=== PATIENT | male | born 1975 | race Caucasian/White ===

== ENCOUNTER 2023-04-24 13:47 | Inpatient (IN) | payer OTHER, SELFPAY ==
[2023-04-24] VITALS (13 sets, daily range): BP systolic 141–160; BP diastolic 99–116; BMI 25.4; BMI 24.7
--- NOTE | 2023-04-24 10:33 | ED.GENMED ---
History of Present Illness
General
Chief Complaint: Seizure
Source: patient
Time Seen by Provider: 04/24/23 10:27
Travel History
Have you had any contact with someone who has COVID-19?: No
Do you have any symptoms of coronavirus? Fever > 100 degrees, chills, cough, shortness of breath, sore throat, loss of taste or smell, muscle aches, or headache?: No
History of Present Illness
History of Present Illness:
47-year-old male with past medical history of asthma, suspected chronic alcohol use, presenting to the emergency department via EMS from home after patient reportedly had a witnessed tonic-clonic seizure that lasted at least 1 minute, tongue biting
reported by EMS, EMS reports patient has since been somewhat confused although does answer most questions appropriately. Patient arrives to the emergency department stating he is overall not really sure what happened, does not remember much of the
events this morning, unsure of what he was doing prior to seizing. Patient does note he drinks beer regularly but is able to quantify how much beer he drinks nor when his last alcoholic beverage consumed was. Patient denies any history of
seizures, no known history of DTs or alcohol withdrawal. Remaining history was somewhat limited due to patient's current mental status as well as no family present.
Past History
Past History
ED Past Medical History: Asthma
ED Past Surgical History: Appendectomy
Social History
Tobacco: Smoker
Alcohol: Chronic alcoholic
Drug: None
Personal: Single
Living: with family
Employment: Employed
Review of Systems
Review of Systems
All Other Systems: ROS reviewed and negative except as documented in HPI and ROS
Phy Exam
Physical Exam
Physical Exam:
GENERAL: Alert but somewhat confused, in no apparent distress
EYE: pupils equal and reactive, 4 mm bilateral, EOMI
NECK: Supple
ENT: o/p clr, mmm. Abrasion right lateral tongue, dried blood periorally
CARDIAC: Tachycardic rate and rhythm, no murmur
LUNGS: Clear breath sounds bilaterally, no acute respiratory distress, no wheezes/rales/rhonchi
ABDOMEN: Soft, without focal tenderness, no r/g, no cvat
NEUROLOGICAL: Alert and oriented to self and place but unaware of the date or time, tremors at rest that worsens with arms extended
SKIN: Warm and dry, skin intact.
MUSCULOSKELETAL: No edema, well perfused.
PSYCH: Normal and appropriate interaction.
Scores
Heart Failure Risk
Heart Failure Risk Score: Not Applicable
Heart Score for Chest Pain Patients
STEMI patient?: Not applicable
Withdrawal Assessment of Alcohol
Withdrawal Assessment Completed?: Yes
Nausea and Vomiting: Mild nausea with no vomiting
Tactile Disturbances: Mild itching, pins and needles, burning or numbness
Tremor: Moderate, with patient's arms extended
Auditory Disturbances: Not present
Paroxysmal Sweats: No sweat visible
Visual Disturbances: Not present
Anxiety: Mild anxiety
Headache, Fullness in Head: Not present
Agitation: Normal activity
Orientation and clouding of sensorium: Cannot do serial additions or is uncertain about date
Total CIWA Score: 9
Alcohol Withdrawal Medication Recommendation: Equal to MSAS Score 5-7. Lorazepam 1mg IV or PO NOW & re-assess q2hrs
Course
Orders/Labs/Results
Orders:
Orders
04/24/23 10:30
CT Head W/o Iv Contrast Urgent
Comment:
Reason For Exam: new seizure, ETOH history
0.9% Sodium Chloride 1000 ml [Nss] 1,000 ml IV BOLUS
Lorazepam [Ativan] 1 mg IV NOW STA
04/24/23 10:31
Electrocardiogram (*1) Stat
Reason for Study: Other
Other Reason for Exam: neuro symptoms
EKG- Treatment ONCE
04/24/23 10:37
Acetaminophen Urgent
Alcohol Urgent
Complete Blood Count/With Diff Urgent
Comprehensive Metabolic Panel Urgent
Magnesium Urgent
PTT Urgent
Prothrombin Time Urgent
04/24/23 11:24
Add On- LAB Urgent
Tests Added?: ETOH, tylenol level
Lorazepam [Ativan] 1 mg IV NOW STA
Abnormal Lab Results
04/24/23
10:37
RBC 4.38 L 10^6/uL
(4.70-6.10)
MCV 96.8 H fL
(80.0-94.0)
MCH 35.4 H pg
(27.0-31.0)
Plt Count 123 L 10^3/uL
(130-400)
Abs Immat Gran (auto) 0.1 H 10^3/uL
(0-0.05)
Immature Gran % 0.8 H %
(0-0.5)
Sodium 132 L mmol/L
(135-145)
Carbon Dioxide 14 L* mmol/L
(22-30)
BUN 7 L mg/dl
(9-20)
Glucose 167 H mg/dl
(70-99)
Total Bilirubin 2.2 H mg/dl
(0.2-1.3)
AST 361 H U/L
(17-59)
ALT 192 H U/L
(0-50)
04/24/23 10:37
04/24/23 10:37
Vital Signs
Initial and Last Documented VS:
Initial Vital Signs
Temp Pulse Resp BP Pulse Ox
97.6 F 134 21 160/109 95
04/24/23 10:30 04/24/23 10:30 04/24/23 10:30 04/24/23 10:30 04/24/23 10:30
Last Documented Vital Signs
Temp Pulse Resp BP Pulse Ox
97.6 F 134 21 160/109 95
04/24/23 10:30 04/24/23 10:30 04/24/23 10:30 04/24/23 10:30 04/24/23 10:30
Tumbling Instructor consulted with Physician
Tumbling Instructor consulted with physician?: Yes
Name of Physician Consulted: Ben
MDM/Problems Addressed
Differential Diagnosis Includes:
New onset seizure, alcohol withdrawal seizure, intracranial bleeding, malignancy, electrolyte disturbance
MDM/Problems Addressed:
47-year-old male presenting to the emergency department from home after reported witnessed tonic-clonic seizure. Patient arrives to the emergency department conversive but does appear still mildly postictal he is tachycardic, tremulous, admits to
daily alcohol use so I have a very high suspicion for alcohol withdrawal seizure. Given this is the patient's first reported seizure will obtain CT of the head, labs and treat with IV fluids as well as 1 mg of Ativan IV. Low threshold to treat
with any other antiepileptics if any further seizure activity as well as further benzodiazepines
Chronic conditions affecting care: Psychiatric illness (Chronic alcohol use)
Acute Exacerbation and/or Progression of Chronic Illness: Psychiatric illness (Alcohol abuse)
*Radiology
Radiology exam reviewed: radiology read reviewed
*Pulse Oximetry
Patient hypoxic: no
*EKG
Interpreted by ED Provider?: Yes
Comparison EKG: no comparison EKG present
Heart Rate: 121
Rate: tachycardiac
Rhythm: sinus
[place]: normal axis
Ischemia: no ischemia
*County Assessor Interpretation
Rate: tachycardiac
Rhythm: sinus
*Critical Care Note
Total Time (30-74mins, 75-104mins- exclusive of procedures): Not Applicable
Data Reviewed
Review of Other/Old Records Reveals: Operative Reports (Patient recently here in November 2022 for a hernia repair)
Patient Management
Discussion with other providers: Hospitalist
Escalation/DeEscalation of care consider admission/obs:
Patient CT is negative for any acute pathology. Patient remains tachycardic and tremulous as well as hypertensive. Concern for possible DTs given his alcohol abuse history. Plan to admit for acute alcohol withdrawal in the setting of a new onset
seizure suspected to be related to patient's alcohol abuse. Hospitalist is aware and accepts for continued evaluation and treatment.
ED Attending Note
-
Portions of this chart may have been created with voice recognition software.� Occasional wrong word or��sound alike� substitutions may have occurred due to the inherent limitations of voice recognition software.
Discharge Plan
Departure
Patient Disposition: Admit
Date of Disposition: 04/24/23
Time of Disposition: 11:26
Presentation/result/management discussed w/ accepting MD/DO: Hospitalist
Discharge Problem:
Alcohol withdrawal seizure, Transaminitis
Prescriptions:
No Action
albuterol sulfate 90 mcg/actuation Hfa Aerosol Inhaler
2 puff INHALATION 6XD PRN (Reason: wheezing)
Advil
3 tab PO PRN PRN (Reason: pain)
acetaminophen [Tylenol Extra Strength] 500 mg tablet
1,000 mg PO Q6HPRN PRN (Reason: mild pain) Qty: 1 0RF
polyethylene glycol 3350 [Miralax] 17 gram/dose powder
4 g PO DAILY PRN (Reason: Constipation) Qty: 119 0RF
Rx Instructions:
start a laxative such as MIRALAX on day 2 after surgery if no bowel movement yet as long as no nausea/vomiting and passing gas
oxycodone 5 mg tablet
5 mg PO Q4HPRN PRN (Reason: breakthrough/severe pain) Qty: 7 0RF
Referrals:
Gene Mckinney MD [Family Provider] -
Interventions
Interventions:
*Risk Screen - Suicide Last Done: 04/24/23 10:30
*General Assessment Last Done: 04/24/23 10:30
*Neglect/Abuse Screening Last Done: 04/24/23 10:30
ED- Fall Risk Assessment Last Done: 04/24/23 10:30
*ED COVID-19 Vaccine History Last Done: 04/24/23 10:30
ED- Cardiac Assessment Last Done: 04/24/23 10:30
ED- Neurological Assessment Last Done: 04/24/23 10:30
ED- Pulmonary Assessment Last Done: 04/24/23 10:30
[2023-04-24] MEDS: NSS 1000 IV ×2 (10:37→16:26)
[2023-04-24] MEDS: ATIVAN 1 MG IV ×3 (10:41→22:02)
[2023-04-24 10:44] LABS: % Basophils 0.6 % (0-2); % Eosinophils 0.8 % (0-6); % Immature Granulocytes 0.8 % (0-0.5); % Lymphocytes 24.9 % (20.5-51.1); % Monocytes 6.4 % (1.7-9.3); % Neutrophils 66.5 % (42.2-75.2); Absolute Basophils 0.1 10^3/uL (0-0.2); Absolute Eosinophils 0.1 10^3/uL (0-0.7); Absolute Immature Granulocytes 0.1 10^3/uL (0-0.05); Absolute Lymphocytes 2.3 10^3/uL (1.2-3.4); Absolute Monocytes 0.6 10^3/uL (0.1-0.6); Absolute Neutrophils 6.1 10^3/uL (1.4-6.5); Hematocrit 42.4 % (39.0-52.0); Hemoglobin 15.5 g/dL (13.0-18.0); Mean Corp Hgb Conc. 36.6 g/dL (33.0-37.0); Mean Corpuscular Hgb 35.4 pg (27.0-31.0); Mean Corpuscular Volume 96.8 fL (80.0-94.0); Mean Platelet Volume 9.5 fL (7.4-10.4); Nucleated Red Blood Cells % 0 % (-); Platelet Count 123 10^3/uL (130-400); Red Blood Cell Count 4.38 10^6/uL (4.70-6.10); Red Cell Dist. Width 11.6 % (11.5-14.5); White Blood Cell Count 9.1 10^3/uL (4.8-10.8)
[2023-04-24 10:56] LABS: INR 1.06; PT 13.6 Sec (11.4-14.6)
[2023-04-24 10:57] LABS: APTT 25.2 Sec (23.4-35.0)
[2023-04-24 11:20] LABS: ALT (SGPT) 192 U/L (0-50); AST (SGOT) 361 U/L (17-59); Alkaline Phosphatase 111 U/L (38-126); Blood Urea Nitrogen 7 mg/dl (9-20); Calcium 9.1 mg/dl (8.4-10.2); Carbon Dioxide 14 mmol/L (22-30); Chloride 99 mmol/L (98-107); Estimated Creatinine Clearance 95 ml/min; Glucose 167 mg/dl (70-99); Magnesium 2.1 mg/dl (1.6-2.3); Sodium 132 mmol/L (135-145); Total Bilirubin 2.2 mg/dl (0.2-1.3); eGFR > 60.00
[2023-04-24 12:16] LABS: Acetaminophen < 10 ug/ml (10-30); Alcohol None Detected
--- NOTE | 2023-04-24 13:13 | HPS.HSE ---
Addendum entered and electronically signed by Andrea Echavarria MD 04/24/23 15:27:
I saw and examined the patient.
The MINI LAB OPERATOR or PA's note was reviewed and I agree with the note.
Comment:
Patient 47 years old male with history of alcohol presented to the hospital with seizure in the setting of alcohol use. He admits to heavy drinking. He has been experiencing shakiness, nausea, increased anxiety as the day has progressed. He did
have tonic-clonic activity witnessed associated with tongue biting. He was noted to have metabolic acidosis, hyponatremia, mild hyperglycemia, and elevated LFTs. He denies chest pain or shortness of breath. Denies abdominal pain. He was referred
to hospitalist for further evaluation.
Physical exam:
General: Acutely ill
HEENT: Normocephalic, Atraumatic and Moist Mucous Membranes
Respiratory: Clear to Auscultation; Negative Wheezes, Rales or Rhonchi
Cardiac: Regular Rhythm and S1/S2
GI: Soft, Nontender and Nondistended, no hepatosplenomegaly
Musculoskeletal: No Clubbing, No Cyanosis and No Edema
Neuro: Awake, Alert and Oriented
Psych: Calm
A/P:
Alcohol withdrawal seizures/metabolic acidosis/transaminitis/hyponatremia/hypertension/sinus tachycardia/leukocytosis--> alcohol withdrawal protocol MSA, start phenobarbital tapering, IV fluids, liver ultrasound, trend LFTs along with electrolytes,
reevaluate blood pressure after withdrawal symptoms subside, seizure precautions. dental practice manager for alcohol rehab (he appears to be interested). Will give further recommendations patient's clinical course.
Original Note:
Family Physician
-
Family Physician: Gene Mckinney
Chief Complaint
-
seizure
History of Present Illness
47-year-old male from home via EMS for witnessed tonic-clonic seizure lasting approximately 1 minute with tongue biting. The patient is no recall of event or what he was doing prior to seizing. He drinks daily alcohol 6 beers and believes that his
last beer was at 8 AM this morning. He reports current headache with leg cramps and sore tongue secondary to tongue biting during his seizure. He states he was at his physicians last week and given eyedrops for dry eyes he was also told at that
time he had elevated blood pressure but was not placed on any medication. He has past medical history of asthma, alcohol abuse, prior nicotine abuse.
Medical History
Past Medical History
Past Medical History: Reports Other
Additional Past Medical History:
asthma- reported no meds
alcohol abuse
nicotine abuse
Past Surgical History: Reports Other (Appendectomy)
Social History
Tobacco: Former Smoker
Alcohol: Daily (6 beers)
Drug: None
Personal:
Living: With Family
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
Family History
Family History: Other (Father alcohol abuse, brother alcohol abuse with history of alcohol withdrawal seizures, DM2, mother healthy)
Allergies / Home Medications
Allergies reflects when Allergies were last updated in [facility].
Home Medications with original date entered in [facility]
Allergy/Medication List:
Allergies
Allergy/AdvReac Type Severity Reaction Status Date / Time
No Known Allergies Allergy Verified 11/09/22 11:28
Home Medications
Artificial Tears 1 drp ophthalmic (eye) Q4H PRN dry eyes 04/24/23
Review of Systems
-
History Source: Patient
A 12 point ROS was completed and negative except as noted: Yes
Constitutional: Denies Fever or Chills
EENT: Reports Other (Tongue-bites to right lateral and left tip from seizure); Denies Sore Throat or Runny Nose
Respiratory: Denies Cough or Trouble Breathing
Cardiac: Denies Chest Pain, Diaphoresis, Palpitations or Syncope
Abdomen/GI: Denies Abdominal Pain, Nausea, Vomiting, Diarrhea, Constipated, Bloody Stools or Black Stools
: Denies Dysuria, Frequency, Flank Pain, Incontinence, Difficulty Voiding or Urgency
Musculoskeletal: Reports Other (Cramps bilateral legs); Denies Joint Pain, Joint Swelling or Edema
Skin: Denies Itching or Rash
Neurological: Reports Dizzy and Headache (With standing)
Endocrine: Reports No Symptoms
Hematologic/Lymphatic: Reports No Symptoms
Psych: Reports Calm
Physical Exam
Vital Signs
Vital Signs
Temp Pulse Resp BP Pulse Ox
97.6 F 134 21 160/109 95
04/24/23 10:30 04/24/23 10:30 04/24/23 10:30 04/24/23 10:30 04/24/23 10:30
Physical Exam
General: Comfortable and Conversant; No Fever, Chills or Slurred Speech
HEENT: NormoCephalic, Anicteric, Moist mucous membranes, Atraumatic, PERRLA, [place] Conjunctivae, No Ptosis and Other (Tongue right lateral aspect and left tip of tongue bites from seizure)
Respiratory: Clear; No Wheezes, Rales or Rhonchi
Cardiac: S1/S2 and Regular Rhythm; No Murmur, Rub, Gallop or Peripheral Edema
GI: Soft, Non Tender, Non Distended, Normal Bowel Sounds and No Hepatosplenomegaly
Rectal: Deferred by Provider
Genito-urinary: Deferred by me
Musculoskeletal: No Clubbing, No Cyanosis and No Edema
Skin: Warm and Dry; No Rash or Jaundice
Neuro: AO x 3, No Motor Deficits, Nonfocal/grossly intact, Cranial Nerves Intact, No Sensory Deficits and Tremors (Bilateral hands); No Slurred Speech or Facial Droop
Psych: Calm
Laboratory Results
-
04/24/23 10:37
04/24/23 10:37
Laboratory Results
PT 13.6 Sec (11.4-14.6) 04/24/23 10:37
INR 1.06 04/24/23 10:37
APTT 25.2 Sec (23.4-35.0) 04/24/23 10:37
Total Bilirubin 2.2 mg/dl (0.2-1.3) H 04/24/23 10:37
AST 361 U/L (17-59) H 04/24/23 10:37
ALT 192 U/L (0-50) H 04/24/23 10:37
Alkaline Phosphatase 111 U/L (38-126) 04/24/23 10:37
Impression/Plan
-
Impression/plan:
Admit to IMU
#Alcohol withdrawal seizure
-Seizure precautions
-MSAs screen protocol
-IV thiamine, IV folate
-phenobarb taper
-PT/OT/case management consult for alcohol rehab
CT head: No acute intracranial abnormality
EKG: Sinus tach 121 bpm, QTc 457 MS no previous EKGs available
#Hypertension-New
-Was advised 1 week ago history of but not placed any medication
IV hydralazine now and 5 mg as needed SBP greater than 160
will monitor need for daily meds
#Acute transaminitis 2/2 alcohol abuse
Follow CMP
-Ultrasound liver
#Acute thrombocytopenia possibly secondary to cirrhosis given alcohol abuse
PLT 123
-Check ultrasound liver
#Tongue lacerations from seizure-mild
-Magic mouthwash for comfort
DVT prophylaxis
SCDs
Full code
[2023-04-24] MEDS: LOPRESSOR 5 MG IV (14:27)
[2023-04-24] MEDS: PHENOBARBITAL 104 MG IV (14:27)
[2023-04-24] MEDS: ZOFRAN 4 MG IV (20:51)
[2023-04-24] MEDS: ATIVAN 2 MG IV (20:51)
[2023-04-24] MEDS: FIRST-MOUTHWASH BLM SUSPENSION 5 ML PO (20:51)
--- NOTE | 2023-04-24 21:45 | TRANSFER ---
Received pt from the ER via stretcher. He was able to walk from the stretcher to the bed. He complained of nausea and tongue pain on arrival. He had shaking tremors and was flushed in color. He was alert and oriented X3. Oriented to his room and
told to not get up OOB without assistance. Urinal placed at bedside. Gave pt 2mg Ativan for an MSAS of 12 and Zofran for nausea, and magic mouth wash with lidocaine with relief. He knelt in his bed to void 450 cc sg urine and his HR increased
to 150 briefly and now 117 at rest. His BP is 149/108. Will continue to monitor pt. Call grubbs in reach and pt more comfortable now.
[2023-04-24] MEDS: VITAMIN B1 100 MG PO (22:01)
[2023-04-24] MEDS: LUMINAL 97.2000000000000028 MG PO (22:01)
[2023-04-25] VITALS (39 sets, daily range): BP systolic 120–171; BP diastolic 76–118; PULSE 110–135
[2023-04-25] MEDS: ATIVAN 2 MG IV ×9 (01:02→23:09)
[2023-04-25] MEDS: NSS (PRESERVATIVE FREE) 1 ML IV ×5 (03:09→18:13)
--- NOTE | 2023-04-25 04:42 | PTCARENOTE ---
Pt has gradually become increasingly confused and restless throughout this shift. He has attempted to climb out of bed and removed his Iv and new Iv was inserted. Medicated per MSAS and has scored up to 12. He states he is dreaming and thinks he
is somewhere else. DISEASE MANAGEMENT NURSE notified and orders obtained for wrist restraints and side rails x4. After restraints were applied, he got out of the Right restraint and set off the bed alarm was at the foot of the bed and stated that he was going to get
some towels. Reoriented to time and place and med sitter will be obtained to help redirect him. Voided 600cc sg urine in the urinal.
[2023-04-25] MEDS: NSS 1000 IV ×2 (05:35→17:23)
[2023-04-25 05:40] LABS: % Basophils 0.4 % (0-2); % Eosinophils 1.1 % (0-6); % Immature Granulocytes 0.4 % (0-0.5); % Lymphocytes 15.4 % (20.5-51.1); % Monocytes 7.7 % (1.7-9.3); Absolute Eosinophils 0.1 10^3/uL (0-0.7); Absolute Lymphocytes 0.9 10^3/uL (1.2-3.4); Absolute Monocytes 0.4 10^3/uL (0.1-0.6); Absolute Neutrophils 4.2 10^3/uL (1.4-6.5); Hematocrit 40.9 % (39.0-52.0); Hemoglobin 14.3 g/dL (13.0-18.0); Mean Corpuscular Hgb 34.9 pg (27.0-31.0); Mean Corpuscular Volume 99.8 fL (80.0-94.0); Nucleated Red Blood Cells % 0 % (-); Red Cell Dist. Width 11.3 % (11.5-14.5); White Blood Cell Count 5.6 10^3/uL (4.8-10.8)
[2023-04-25 05:50] LABS: ALT (SGPT) 154 U/L (0-50); AST (SGOT) 173 U/L (17-59); Albumin 4.2 g/dl (3.5-5.0); Alkaline Phosphatase 85 U/L (38-126); Blood Urea Nitrogen 6 mg/dl (9-20); Calcium 8.5 mg/dl (8.4-10.2); Carbon Dioxide 23 mmol/L (22-30); Chloride 101 mmol/L (98-107); Estimated Creatinine Clearance 122 ml/min; Glucose 108 mg/dl (70-99); HDL Cholesterol 84 mg/dl; LDL Cholesterol, Calculated 77 mg/dl; Potassium 3.7 mmol/L (3.5-5.1); Sodium 135 mmol/L (135-145); Total Bilirubin 2.2 mg/dl (0.2-1.3); Total Cholesterol 179 mg/dl (50-199); Total Protein 6.9 g/dl (6.3-8.2); Triglyceride 91 mg/dl (10-149); Very Low Density Lipoprotein 18 mg/dl (0-30); eGFR > 60.00
--- NOTE | 2023-04-25 06:41 | W.PN.HOSP.TC ---
Today's Communication/Plan
-
Continue IV fluids
As needed metoprolol IV for heart rate and blood pressure
Continue phenobarb taper and MS AMS protocol
Monitor thrombocytopenia
Electrolytes LFTs hepatic ultrasound pending
Assessment / Plan
Assessment / Plan
Patient 47 years old male with history of alcohol presented to the hospital with seizure in the setting of alcohol use.� He admits to heavy drinking.� He has been experiencing shakiness, nausea, increased anxiety as the day has progressed.� He did
have tonic-clonic activity witnessed associated with tongue biting.� He was noted to have metabolic acidosis, hyponatremia, mild hyperglycemia, and elevated LFTs.� He denies chest pain or shortness of breath.� Denies abdominal pain.� He was referred
to hospitalist for further evaluation.
Physical exam:
General: Acutely ill
HEENT: Normocephalic, Atraumatic and Moist Mucous Membranes
Respiratory: Clear to Auscultation; Negative Wheezes, Rales or Rhonchi
Cardiac: Regular Rhythm and S1/S2
GI: Soft, Nontender and Nondistended, no hepatosplenomegaly
Musculoskeletal: No Clubbing, No Cyanosis and No Edema/tremors bilateral hands/no focal deficits
Neuro: Awake, Alert and Oriented/no hallucination
Psych: Calm
Admit to IMU
#Alcohol withdrawal seizure
-Metabolic acidosis on presentation now resolved
-Will continue on IV fluids for another day until improved oral intake
-Seizure precautions
-MSAs screen protocol
-IV thiamine, IV folate
-phenobarb taper
-PT/OT/case management consult for alcohol rehab
� ��CT head:�No acute intracranial abnormality
�� EKG: Sinus tach 121 bpm, QTc 457 MS no previous EKGs available
#Hypertension-New
-Was advised 1 week ago history of but not placed any medication
IV hydralazine now and 5 mg as needed SBP greater than 160
-As needed metoprolol for tachycardia and high BP
-Marijuana placed on maintenance beta-blockade
�will monitor need for daily meds
#Acute transaminitis 2/2 alcohol abuse
Follow CMP/AST trending down
-Ultrasound liver
#Acute thrombocytopenia possibly secondary to cirrhosis given alcohol abuse
PLT 123
-Check ultrasound liver
#Tongue lacerations from seizure-mild
-Magic mouthwash for comfort
DVT prophylaxis
SCDs
Full code
Anticipated Discharge: 24 - 48 hours
Subjective/Interval History
-
Date of Service: April 25, 2023
Was restless throughout the night trying to get a bed to be placed in restraints and med viewer denies any present hallucinations no further seizures
Objective Data
-
Labs:
Laboratory Results
04/25/23
05:10
WBC 5.6
Hgb 14.3
Hct 40.9
Plt Count Pending
Sodium 135
Potassium 3.7
Chloride 101
Carbon Dioxide 23
BUN 6 L
Creatinine 0.7
Glucose 108 H
Calcium 8.5
Total Bilirubin 2.2 H
AST 173 H
ALT 154 H
Alkaline Phosphatase 85
Vital Signs:
Vital Signs
Temp Pulse Resp BP Pulse Ox
98.7 F 107 17 145/114 98
04/25/23 03:15 04/25/23 04:45 04/25/23 04:45 04/25/23 04:07 04/25/23 04:45
I&O
04/23/23 04/24/23 04/25/23
06:59 06:59 06:59
Intake Total 360 / 360
Output Total 1400 / 1400
Balance -1040 / -1040
Review of Systems
-
History Source: Patient and Family
Constitutional: Reports No Symptoms
EENT: Reports No Symptoms Reported
Respiratory: Reports No Symptoms
Abdomen/GI: Reports Nausea
Neuro: Reports Tremors and Seizures
Physical Exam
-
General: Well Developed
HEENT: Normocephalic
Respiratory: Clear to Auscultation
Cardiac: Regular Rhythm and Tachycardic
GI: Soft and Nontender
Musculoskeletal: No Edema
Skin: Warm and IV Access / Catheter Site
Neuro: Awake
Psych: Calm
Data Reviewed
-
Total Time Spent with Patient (in minutes): 45
Labs: Labs Reviewed by me (LFTs trending down/acidosis resolved/MCV 100)
[2023-04-25 07:04] LABS: Mean Platelet Volume 10.2 fL (7.4-10.4); Platelet Count 75 10^3/uL (130-400)
[2023-04-25] MEDS: ATIVAN 1 MG IV ×2 (07:58→13:00)
[2023-04-25] MEDS: THIAMINE INJECTION 200 MG IV ×2 (07:58→20:37)
[2023-04-25] MEDS: VITAMIN B1 100 MG PO (07:59)
[2023-04-25] MEDS: LUMINAL 97.2000000000000028 MG PO ×2 (07:59→15:43)
[2023-04-25] MEDS: NSS (PRESERVATIVE FREE) 0.5 ML IV ×2 (08:03→13:00)
[2023-04-25] MEDS: ATIVAN 1 MG PO (11:06)
--- NOTE | 2023-04-25 13:19 | PTCARENOTE ---
Rec'd pt this AM. MSAS 4-10 today. Some periods of hallucinations, consistently trying to get OOB, B/L wrist restraints in place. Ativan given as ordered for MSAS protocol. Frequent re-orientation required. ST on tele. Ate 100% of lunch. Able to use
the urinal with assisance. Unteady on feet.
--- NOTE | 2023-04-25 14:01 | PTCARENOTE ---
Pt with increasing MSAS score of 12. 1mg IV Ativan given. Pt with active hallucinations, tachy,disoriented.
--- NOTE | 2023-04-25 16:08 | PTCARENOTE ---
Pt very combative. ripping equipment in half,despite wrist restraints. pulling on restraints. HR 140s to 150s, biting at restraints as well. hallucinating. thrashing. 6mg IV Ativan given since 11am with minimal effectiveness. requires 4pt restraints
at this time. Dr. Esposito and Dr. Alonzo (cross cover) updated.
--- NOTE | 2023-04-25 16:22 | PTCARENOTE ---
Pt with increased combativemess. Dr. Alonzo at bedside, ICU orders placed
--- NOTE | 2023-04-25 16:36 | W.PN.UPDATE ---
Update Note
Progress Note Update
Asked to see regarding worsening confusion
Patient admitted with alcohol withdrawal seizures. Currently on alcohol withdrawal protocol.
Patient has been having escalating confusion requiring frequent IV as needed Ativan doses. He is also on phenobarb taper.
Currently alert but not oriented. He did not know he is in the hospital. He has been noted to have hallucinations. He is agitational's intermittently. He is in restraints and biting on the restraints.
Heart rate in 130s sinus rhythm and systolic blood pressure in 150s. He looks anxious and hypervigilant.
Patient in alcohol withdrawal syndrome which is worsening. Transferred to ICU. Start on Precedex. Consult psychiatry.
[2023-04-25] MEDS: PRECEDEX 100 IV ×2 (17:17→20:37)
--- NOTE | 2023-04-25 17:33 | TRANSFER ---
Transported pt to ICU with PERNELL Goode. Bedside report given.
--- NOTE | 2023-04-25 18:28 | PTCARENOTE ---
Received pt. transfer from IMU into ICU rm [id number] @ 1700. Pt. restless/agitated/confused/intermittently hallucinating. Oriented to self/situation only. Reported he drinks 6 beers/day and last drink was Tuesday @ HS. 4 point soft limb/4 rail
restraints maintained- see flow sheet. Precedex gtt started- see work list. Safe environment maintained.
[2023-04-25] MEDS: FOLVITE 50.2000000000000028 MG IV (21:45)
[2023-04-25] MEDS: PHENOBARBITAL 97.5 MG IV (22:08)
[2023-04-25] MEDS: LOPRESSOR 5 MG IV (22:09)
--- NOTE | 2023-04-25 22:58 | PTCARENOTE ---
Pt received at 19:00. Pt initially with MSAS = 4, pt with periods of restless and agitation, MSAS up to 14 with RASS = +3. PRN ativan given as ordered, precedex titrated as ordered. Pt remains in restraints as ordered. Assessment as documented.
[2023-04-26] VITALS (53 sets, daily range): BP systolic 90–167; BP diastolic 41–119
[2023-04-26] MEDS: ATIVAN 1 MG IV (03:05)
[2023-04-26 04:01] LABS: % Basophils 0.2 % (0-2); % Eosinophils 0.5 % (0-6); % Immature Granulocytes 0.3 % (0-0.5); % Lymphocytes 12.8 % (20.5-51.1); % Monocytes 4.5 % (1.7-9.3); % Neutrophils 81.7 % (42.2-75.2); Absolute Eosinophils 0.1 10^3/uL (0-0.7); Absolute Lymphocytes 1.4 10^3/uL (1.2-3.4); Absolute Monocytes 0.5 10^3/uL (0.1-0.6); Absolute Neutrophils 8.6 10^3/uL (1.4-6.5); Hematocrit 42.3 % (39.0-52.0); Hemoglobin 14.8 g/dL (13.0-18.0); Mean Corpuscular Hgb 34.8 pg (27.0-31.0); Mean Corpuscular Volume 99.5 fL (80.0-94.0); Mean Platelet Volume 10.5 fL (7.4-10.4); Nucleated Red Blood Cells % 0 % (-); Platelet Count 94 10^3/uL (130-400); Red Blood Cell Count 4.25 10^6/uL (4.70-6.10); Red Cell Dist. Width 11.4 % (11.5-14.5); White Blood Cell Count 10.5 10^3/uL (4.8-10.8)
[2023-04-26] MEDS: ATIVAN 2 MG IV ×4 (04:09→20:07)
[2023-04-26] MEDS: FIRST-MOUTHWASH BLM SUSPENSION 5 ML PO ×3 (04:18→16:57)
[2023-04-26] MEDS: NSS 1000 IV ×2 (04:18→15:51)
--- NOTE | 2023-04-26 04:24 | PTCARENOTE ---
Pt yelling out and agitated. MSAS = 12, RASS = +3. PRN ativan given as ordered--effective.
[2023-04-26 04:28] LABS: ALT (SGPT) 126 U/L (0-50); AST (SGOT) 122 U/L (17-59); Albumin 4.5 g/dl (3.5-5.0); Alkaline Phosphatase 90 U/L (38-126); Blood Urea Nitrogen 7 mg/dl (9-20); Calcium 8.4 mg/dl (8.4-10.2); Carbon Dioxide 21 mmol/L (22-30); Chloride 103 mmol/L (98-107); Estimated Creatinine Clearance > 125 ml/min; Glucose 136 mg/dl (70-99); Magnesium 2.4 mg/dl (1.6-2.3); Potassium 3.9 mmol/L (3.5-5.1); Sodium 138 mmol/L (135-145); Total Bilirubin 2.1 mg/dl (0.2-1.3); Total Protein 7.3 g/dl (6.3-8.2); eGFR > 60.00
[2023-04-26] MEDS: LOPRESSOR 5 MG IV (05:05)
[2023-04-26] MEDS: PRECEDEX 100 IV ×3 (05:39→20:00)
--- NOTE | 2023-04-26 07:05 | W.PN.HOSP.TC ---
Today's Communication/Plan
-
Will continue on Precedex/titrate down based on levels of agitation and hallucinations
Phenobarb taper
LFTs trending down
Psychiatry input pending
Assessment / Plan
Assessment / Plan
Patient 47 years old male with history of alcohol presented to the hospital with seizure in the setting of alcohol use.� He admits to heavy drinking.� He has been experiencing shakiness, nausea, increased anxiety as the day has progressed.� He did
have tonic-clonic activity witnessed associated with tongue biting.� He was noted to have metabolic acidosis, hyponatremia, mild hyperglycemia, and elevated LFTs.� He denies chest pain or shortness of breath.� Denies abdominal pain.� He was referred
to hospitalist for further evaluation.
Physical exam:
General: Acutely ill
HEENT: Normocephalic, Atraumatic and Moist Mucous Membranes
Respiratory: Clear to Auscultation; Negative Wheezes, Rales or Rhonchi
Cardiac: Regular Rhythm and S1/S2
GI: Soft, Nontender and Nondistended, no hepatosplenomegaly
Musculoskeletal: No Clubbing, No Cyanosis and No Edema/tremors bilateral hands/no focal deficits
Neuro: Awake, Alert and Oriented/no hallucination
Psych: Calm
Admit to IMU>> !CU for Precedex
#Alcohol withdrawal seizure/ DTs developed with hallucinations
-Metabolic acidosis on presentation now resolved
-Will continue on IV fluids for another day until improved oral intake
-Seizure precautions
-MSAs screen protocol
-IV thiamine, IV folate
-phenobarb taper
-PT/OT/case management consult for alcohol rehab
� ��CT head:�No acute intracranial abnormality
�� EKG: Sinus tach 121 bpm, QTc 457 MS no previous EKGs available
#Hypertension-New
-Was advised 1 week ago history of but not placed any medication
IV hydralazine now and 5 mg as needed SBP greater than 160
-As needed metoprolol for tachycardia and high BP
- For now placed on maintenance beta-blockade
�will monitor need for daily meds
#Acute transaminitis 2/2 alcohol abuse
Follow CMP/AST trending down
-Ultrasound liver>> fatty liver
#Acute thrombocytopenia possibly secondary to cirrhosis given alcohol abuse
PLT 94,000
-Check ultrasound liver consistent with fatty liver
#Tongue lacerations from seizure-mild
-Magic mouthwash for comfort
DVT prophylaxis
SCDs
Full code
Anticipated Discharge: 24 - 48 hours
Subjective/Interval History
-
Date of Service: April 26, 2023
Sedated with snoring respirations BPs were elevated overnight now on Precedex after marked amount of agitation and confusion yesterday in spite of phenobarb taper
Objective Data
-
Labs:
Laboratory Results
04/26/23
03:35
WBC 10.5
Hgb 14.8
Hct 42.3
Plt Count 94 L D
Sodium 138
Potassium 3.9
Chloride 103
Carbon Dioxide 21 L
BUN 7 L
Creatinine 0.6 L
Glucose 136 H
Calcium 8.4
Total Bilirubin 2.1 H
AST 122 H
ALT 126 H
Alkaline Phosphatase 90
Vital Signs:
Vital Signs
Temp Pulse Resp BP Pulse Ox
97.6 F 95 22 152/98 100
04/26/23 03:42 04/26/23 05:45 04/26/23 05:45 04/26/23 05:45 04/26/23 05:30
I&O
04/25/23 04/26/23 04/27/23
06:59 06:59 06:59
Intake Total 1240 / 1240 2547.4 / 2547.4
Output Total 1400 / 1400 2049
Balance -160 / -160 497.4 / 497.4
Review of Systems
-
Unable to obtain full review of systems at this time due to: Other (Sedated on Precedex)
History Source: Patient
Constitutional: Reports Sleep Disturbance; Denies Fever
EENT: Reports No Symptoms Reported
Respiratory: Reports No Symptoms
Physical Exam
-
General: Well Developed and Other (Sedated)
HEENT: Normocephalic
Respiratory: Clear to Auscultation
Cardiac: Regular Rhythm
GI: Soft
Neuro: Sedated and Nonfocal/Grossly Intact
Data Reviewed
-
Total Time Spent with Patient (in minutes): 56
Labs: Labs Reviewed by me (Magnesium 2.4. Bilirubin 2.1 AST and ALT trending down)
--- NOTE | 2023-04-26 07:39 | CON.INTV ---
Consultation
Consultation Request
Date/Time Consultation Requested: 04/26/2023-7 AM
Date/Time Consultation Performed: 04/26/2023-7:30 AM
Requesting Provider: Hospitalist
Performing Provider: Dr. Yoon
Reason for Consultation: DTs/seizures/critical care management
Medical History
-
Chief Complaint: Alcohol withdrawal
History of Present Illness:
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
DTs/seizures/critical care management 04/26/2023. The patient is sedated on Precedex and review of systems was unobtainable at this time.
Past Medical History
Past Medical History: None (Alcohol use disorder. Asthma. Former smoker. Appendectomy.)
Social History
Tobacco: Former Smoker
Alcohol: Daily
Drug: None
Personal:
Living: With Family
Occupational Exposures: No known asbestos exposure
Environmental Exposures: No known tuberculosis exposure
Family History
Family History: Other (Father-alcohol use disorder. Brother-alcohol use disorder with a history of alcohol withdrawal seizures. Brother-diabetes.)
Allergies / Home Medications
Allergies
Allergy/AdvReac Type Severity Reaction Status Date / Time
No Known Allergies Allergy Verified 11/09/22 11:28
Home Medications
Medication Instructions Recorded Confirmed Last Taken Type
albuterol sulfate 90 mcg/actuation 2 puff inhalation R Q4HPRN PRN 04/24/23 04/24/23 04/24/23 History
aerosol inhaler sob/wheezing
varenicline 0.03 mg/spray nasal 1 spray intranasal BID Eye 04/24/23 04/24/23 04/24/23 History
spray (Tyrvaya) Condition
Review of Systems
-
Unable to Obtain full review of systems at this time due to: Other (Per HPI)
Vitals / Labs / Diagnostic Testing
Vital Signs
Temp Pulse Resp BP Pulse Ox
98.6 F 95 22 152/98 100
04/26/23 07:22 04/26/23 05:45 04/26/23 05:45 04/26/23 05:45 04/26/23 05:30
Lab Data
04/26/23 03:35
04/26/23 03:35
Diagnostic Testing:
Physical Exam
-
Exam:
Well-nourished and well-developed in no apparent distress
HEENT-atraumatic, normocephalic
Neck-supple, no JVD, no bruit
Heart-regular rate and rhythm-no murmurs, rubs or gallops
Chest-clear to auscultation, no wheezes, crackles
Back-no tenderness
Abdomen-soft, nontender, nondistended, no hepatosplenomegaly
Extremities-no cyanosis, clubbing, edema and good peripheral pulses
Integument-intact, no rashes, lesions or ecchymosis
Neurologically patient is sedated, moving extremities nonfocal
Assessment
-
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
DTs/seizures/critical care management 04/26/2023.
Assessment
Alcohol use disorder with DTs and seizure
New onset seizures
Tongue laceration from seizure
Mild hyperglycemia
Transaminitis and total bilirubin elevation
Metabolic acidosis
Hypertension
Thrombocytopenia
Conditions present prior to admission:
Alcohol use disorder
Asthma
Former smoker
Appendectomy
Family history of alcoholism
Plan
Patient will be admitted to medical intensive care unit with alcohol intoxication and alcohol withdrawal syndrome
Supplemental oxygen as needed
Aspiration precautions
Incentive spirometry
Head of bed elevation
Follow MSAS
Alcohol withdrawal treatment protocol will continue
Supplements glucose and thiamine to prevent Wernicke's encephalopathy
Supplement multivitamins and folate
Replete deficiencies and glucose, potassium, magnesium and phosphorus
Benzodiazepines as needed-diazepam or lorazepam
Precedex drip continues
Continue phenobarbital 130-260 mg IV every 20 minutes
Alcohol cessation counseling
Consider psychiatry evaluation
Consider rehabilitation
Follow-up liver functions
Right upper quadrant ultrasound
Follow-up thrombocytopenia
Monitor hypertension
Antihypertensives as needed
DVT prophylaxis
GI prophylaxis
Early nutrition
Early mobilization
Critical care statement: A total of 52 minutes of critical care time was provided for this patient today. This includes management of unstable vital signs, treatment for and prevention of alcohol withdrawal, evaluation of the patient at bedside,
reviewing the patient's pertinent medical records including radiographs, treatment of alcohol withdrawal seizures, Precedex drip management, phenobarbital management, microbiology, laboratory evaluations, and discussion with primary team,
consultants, pharmacy, nutrition, physical therapy, case management, charge nurse, critical care nursing, and respiratory therapy.
Diagnostic data:
Chest x-ray 04/25/2023-NAD
Data Reviewed
-
EKG: Report reviewed by me
Radiology: Report reviewed by me
Medical Tests (Nuc Med, Echo etc): Report reviewed by me
Labs: Labs reviewed by me
Old Records: Reviewed
Critical Care Time (in minutes): 52
[2023-04-26] MEDS: THIAMINE INJECTION 200 MG IV ×2 (08:53→20:07)
[2023-04-26] MEDS: PHENOBARBITAL 97.5 MG IV ×2 (08:53→15:51)
[2023-04-26] MEDS: FOLVITE 50.2000000000000028 MG IV (09:36)
--- NOTE | 2023-04-26 09:46 | PTCARENOTE ---
precedex titrated from 1 mcg to 0.5 RASS -3
Precedex titrated from 1mcg to 0.5/9ml RASS -3. BP via RT upper arm 130/103 MAP 123. HR 97SR POX 95% RR 24 NSS at 80/hr via left AC / Folic Acid IV adm. MSAS 5. HOB elevated 35 degrees . Pt NPO
--- NOTE | 2023-04-26 10:27 | PTCARENOTE ---
precedex turned off RASS remains -3
--- NOTE | 2023-04-26 11:10 | CS.PSYCHR ---
Consult Summary - Psychiatry
-
Pt is 47 yo male who presented to the hospital with seizure in the setting of alcohol use.� Pt reported hx of heavy drinking, and experiencing shakiness, nausea, increased anxiety the day of admission 04/23. Alcohol level on adm was < 10.� Pt noted
with tonic-clonic activity and tongue biting.� He was noted to have metabolic acidosis, hyponatremia, and elevated LFTs.� Pt seen in ICU, in soft wrists restraints, becoming mildly agitated, not able to answer questions, not making eye contact,
disoriented. Pt was noted yelling and agitated overnight, MSAS score 12 at 4:24 am. Pt received 18 mg of IV Ativan on 04/24 (yesterday). Phenobarb was also started upon admission. Pt was started on Precedex, which was temporarily held per nursing
staff due to excess sedation/lethargy. QTc on admission 457.
PMH: asthma, nicotine use. No reported home meds
Psych Hx: none noted; pt unable to give any information
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
MSE: disoriented, agitated, unable to answer questions/incoherent, in a delirious state, pulling at wrist restraints, mildly agitated at present. No overt signs of hallucinations, eyes closed
Imp: Alcohol Use d/o, severe; alcohol withdrawal delirium, seizure
Rec: continue on MSAS protocol, Phenobarb taper. Agree with Precedex.
Encourage alcohol rehab when pt medically stable
will follow
--- NOTE | 2023-04-26 11:31 | CM ---
CM following re: discharge planning.
Discussed in Rounds, reviewed pt's chart, met with pt and met with pt's mother.
Pt is a 47 year old male, admitted with primary dx of Alcohol use disorder with DTs and seizure.
Pt reports he lives with a girlfriend in a rancher style house, 2 steps to enter, has 4 year old son. Pt admitted to sig h/o alcohol abuse, has been drinking with his girlfriend daily for a while. Pt stated he has never been in inpatient/outpatient
D&A rehab, accept an offer to meet with [facility] team for a possible admission to inpatient residential D&A rehab.
Pt's mother stated she has been trying to get pt to a D&A rehab many times in the past with no success and per mother pt's girlfriend is a drinker also and pt has no support at home to work on his sobriety.
A referral to [facility] made, spoke to GLORY Patterson and she will meet with pt tomorrow when pt is more awake.
Psychiatry consult noted - inpatient residential D&A rehab recommended.
PCP: Gene Mckinney
Pharmacy: [facility]
D/C plan: Inpatient residential D&A rehab. [facility] following.
CM will follow with discharge plan updates as hospitalization progresses
[2023-04-26] MEDS: NSS (PRESERVATIVE FREE) 10 ML IV (12:27)
--- NOTE | 2023-04-26 16:21 | PTCARENOTE ---
patine in bed. continues in 4 points soft restrains/4 side rails. MSAS 15. SR 93. Phenobarbital 97.5 IV adm per current order . Precedex infusing 0.5mcg/9ml+NSS 80 /hr via left AC. Condom catheter #25 intact draining sg clear urine 50-100 /hr.
Ice water via sponges administered. call grubbs with reach. Head of bed elevated
[2023-04-26] MEDS: LOVENOX 40 MG SC (16:56)
--- NOTE | 2023-04-26 18:32 | PTCARENOTE ---
MASA 16. Restless and combative, pt detached with reality, hallucinative. .Pulled off wrist restraints. security called. Ativan adm 2 mg IV. Precedex increased to 0.7 /12.6mL . Multiple loose stools. HS care administered. 4 point soft restraints
reapplied. HOB elevated call grubbs within reach
--- NOTE | 2023-04-26 20:00 | PTCARENOTE ---
Resumed care of pt sleeping in bed, Father at bedside. Pt snoring loudly. Upon pt waking up pt instantly agitated, restless, pulling off heart monitor, gown, able to break free from restraints. MSAS assessed 11- Ativan administered per protocol.
Precedex titrated accordingly. Pt continues to pull at condom catheter, rectal tube, B/L hand mitts applied. New order obtained for restraints, see Restraint documentation. HR in the low 100's ST on the monitor. Pt confused, able to mumble name,
unable to reorient at this time. POX 95% on RA. lungs dec t/o. Hyper bowl, round abd. #[address] draining dark sg urine. Palpable peripheral pulses present. NSS infusing @80ml/hr via left AC int as well as Precedex gtt @0.9mcg/kg/hr. Close
monitoring maintained.
[2023-04-26] MEDS: PHENOBARBITAL 65 MG IV (22:04)
[2023-04-27] VITALS (27 sets, daily range): BP systolic 115–167; BP diastolic 88–118; BMI 24.7
--- NOTE | 2023-04-27 00:36 | PTCARENOTE ---
Pt sleeping. 4pt restraints/mitts remain in place. Pt repositioned. Keesha care provided. Barrier cream to sacrum. Vital signs stable. No other changes in assessment noted at this time. Will continue to monitor.
[2023-04-27] MEDS: PRECEDEX 100 IV ×3 (01:52→13:47)
[2023-04-27] MEDS: NSS 1000 IV (04:24)
[2023-04-27 04:41] LABS: % Basophils 0.3 % (0-2); % Eosinophils 0.9 % (0-6); % Immature Granulocytes 0.4 % (0-0.5); % Lymphocytes 14.7 % (20.5-51.1); % Monocytes 5.9 % (1.7-9.3); % Neutrophils 77.8 % (42.2-75.2); Absolute Eosinophils 0.1 10^3/uL (0-0.7); Absolute Lymphocytes 1.2 10^3/uL (1.2-3.4); Absolute Monocytes 0.5 10^3/uL (0.1-0.6); Absolute Neutrophils 6.2 10^3/uL (1.4-6.5); Hematocrit 34.4 % (39.0-52.0); Hemoglobin 12.3 g/dL (13.0-18.0); Mean Corp Hgb Conc. 35.8 g/dL (33.0-37.0); Mean Platelet Volume 10.9 fL (7.4-10.4); Nucleated Red Blood Cells % 0 % (-); Platelet Count 92 10^3/uL (130-400); Red Blood Cell Count 3.51 10^6/uL (4.70-6.10); Red Cell Dist. Width 11.7 % (11.5-14.5); White Blood Cell Count 7.9 10^3/uL (4.8-10.8)
[2023-04-27 05:02] LABS: ALT (SGPT) 100 U/L (0-50); AST (SGOT) 89 U/L (17-59); Albumin 3.5 g/dl (3.5-5.0); Alkaline Phosphatase 76 U/L (38-126); Blood Urea Nitrogen 9 mg/dl (9-20); Calcium 7.4 mg/dl (8.4-10.2); Carbon Dioxide 18 mmol/L (22-30); Chloride 112 mmol/L (98-107); Estimated Creatinine Clearance > 125 ml/min; Glucose 86 mg/dl (70-99); Potassium 3.3 mmol/L (3.5-5.1); Sodium 138 mmol/L (135-145); Total Bilirubin 1.3 mg/dl (0.2-1.3); eGFR > 60.00
[2023-04-27] MEDS: KCL 270 MEQ IV (05:37)
--- NOTE | 2023-04-27 07:12 | W.PN.INTV ---
Today's Communication / Plan
Recommendations
Aspiration precautions
Wean Precedex
Phenobarbital continues
Intravenous fluids
Replace potassium
LFTs trending down
Assessment
-
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
DTs/seizures/critical care management 04/26/2023.
Assessment
Alcohol use disorder with DTs and seizure
New onset seizures
Tongue laceration from seizure
Mild hyperglycemia
Transaminitis and total bilirubin elevation
Metabolic acidosis
Hypertension
Thrombocytopenia
Conditions present prior to admission:
Alcohol use disorder
Asthma
Former smoker
Appendectomy
Family history of alcoholism
Plan
Critically ill on a Precedex drip and phenobarbital with ongoing intermittent agitation
Supplemental oxygen as needed
Aspiration precautions
Incentive spirometry
Head of bed elevation
Continue to follow MSAS
Alcohol withdrawal treatment protocol will continue
Supplements glucose and thiamine to prevent Wernicke's encephalopathy
Supplement multivitamins and folate
Replete deficiencies and glucose, potassium, magnesium and phosphorus
Benzodiazepines as needed-diazepam or lorazepam
Precedex drip continues
Continue with phenobarbital
4 point restraints as needed
Alcohol cessation counseling when oriented
Consider eventual psychiatry evaluation
Consider rehabilitation
Trend LFTs-improving
Abdominal ultrasound 04/25/2023-increased echogenicity of the liver compatible with hepatocellular disease most commonly related to fatty infiltration of the liver
Follow-up thrombocytopenia
Monitor hypertension
Antihypertensives as needed
DVT prophylaxis
GI prophylaxis
Early nutrition
Early mobilization
Critical care statement: A total of 38 minutes of critical care time was provided for this patient today. This includes management of unstable vital signs, treatment for and prevention of alcohol withdrawal, evaluation of the patient at bedside,
reviewing the patient's pertinent medical records including radiographs, treatment of alcohol withdrawal seizures, Precedex drip management, phenobarbital management, microbiology, laboratory evaluations, and discussion with primary team,
consultants, pharmacy, nutrition, physical therapy, case management, charge nurse, critical care nursing, and respiratory therapy.
Diagnostic data:
Chest x-ray 04/25/2023-NAD
Subjective Dataa
Subjective Data
Date of Service:
Date of Service: April 27, 2023
Chief Complaint: Coat Padder Follow Up and Pulmonary Follow Up
Subjective:
Still sedate, not oriented, intermittently agitated, in restraints, no respiratory distress
Review of Systems
General: Other (Per HPI)
Objective Data
Data Reviewed
Vital Signs / I&O / Oxygen:
Vital Signs
Temp Pulse Resp BP Pulse Ox
97.7 F 80 15 131/93 95
04/27/23 04:26 04/27/23 05:00 04/27/23 05:00 04/27/23 05:00 04/27/23 05:00
Intake and Output
04/26/23 04/27/23 04/28/23
06:59 06:59 06:59
Intake Total 2547.4 / 2652.9 2315.7 / 2315.7
Output Total 2049 1250 / 1250
Balance 497.4 / 577.9 1065.7 / 1065.7
SaO2 95
Physical Exam
General: Respiratory Distress (n) and Comfortable
HEENT: Normocephalic, Anicteric and Moist Mucous Membranes
Cardiovascular: Regular Rhythm
Respiratory: Wheeze (n), Crackles (n), Rhonchi (n), Non-Labored Respirations, Accessory Resp Muscle Use (n) and Stridor (n)
GI: Soft, Non Distended and Non Tender
Neurology: No Motor Deficits and Lethargic
Skin: Warm, Good Color, Cyanosis (n) and Jaundice (n)
Labs/Micro/Reports
Lab Data
04/27/23 04:17
04/27/23 04:17
--- NOTE | 2023-04-27 07:13 | W.PN.HOSP.TC ---
Today's Communication/Plan
-
Continue to titrate Precedex to need
4 point restraints as needed
Change IV fluids from saline to lactated Ringer's
Trending LFTs improving
Replating potassium
Assessment / Plan
Assessment / Plan
Patient 47 years old male with history of alcohol presented to the hospital with seizure in the setting of alcohol use.� He admits to heavy drinking.� He has been experiencing shakiness, nausea, increased anxiety as the day has progressed.� He did
have tonic-clonic activity witnessed associated with tongue biting.� He was noted to have metabolic acidosis, hyponatremia, mild hyperglycemia, and elevated LFTs.� He denies chest pain or shortness of breath.� Denies abdominal pain.� He was referred
to hospitalist for further evaluation.
Physical exam:
General: Acutely ill
HEENT: Normocephalic, Atraumatic and Moist Mucous Membranes
Respiratory: Clear to Auscultation; Negative Wheezes, Rales or Rhonchi
Cardiac: Regular Rhythm and S1/S2
GI: Soft, Nontender and Nondistended, no hepatosplenomegaly
Musculoskeletal: No Clubbing, No Cyanosis and No Edema/tremors bilateral hands/no focal deficits
Neuro: Awake, Alert and Oriented/no hallucination
Psych: Calm
Admit to IMU>> !CU for Precedex
#Alcohol withdrawal seizure/ DTs developed with hallucinations
-Metabolic acidosis on presentation now resolved
-Will continue on IV fluids changed to lactated Ringer's
-Seizure precautions
-MSAs screen protocol
-IV thiamine, IV folate
-phenobarb taper/changed to IV with agitation
-PT/OT/case management consult for alcohol rehab
� ��CT head:�No acute intracranial abnormality
�� EKG: Sinus tach 121 bpm, QTc 457 MS no previous EKGs available
#Hypertension-New
-Was advised 1 week ago history of but not placed any medication
IV hydralazine now and 5 mg as needed SBP greater than 160
-As needed metoprolol for tachycardia and high BP
- For now placed on maintenance beta-blockade
�will monitor need for daily meds
#Acute transaminitis 2/2 alcohol abuse
Follow CMP/AST trending down
-Ultrasound liver>> fatty liver
#Acute thrombocytopenia possibly secondary to cirrhosis given alcohol abuse
PLT 94,000
-Check ultrasound liver consistent with fatty liver
#Tongue lacerations from seizure-mild
-Magic mouthwash for comfort
DVT prophylaxis
SCDs
Full code
Anticipated Discharge: 24 - 48 hours
Subjective/Interval History
-
Date of Service: April 27, 2023
Any time patient awakened enters into a delirious state and without wristband ankle restraints on 2 separate occasions overnight necessitating increase in Precedex titration resting presently and did not awaken he had several episodes of diarrhea
yesterday but none overnight urine is concentrated rectal tube was removed
Objective Data
-
Labs:
Laboratory Results
04/27/23
04:17
WBC 7.9
Hgb 12.3 L
Hct 34.4 L
Plt Count 92 L
Sodium 138
Potassium 3.3 L
Chloride 112 H
Carbon Dioxide 18 L
BUN 9
Creatinine 0.5 L
Glucose 86
Calcium 7.4 L
Total Bilirubin 1.3
AST 89 H
ALT 100 H
Alkaline Phosphatase 76
Vital Signs:
Vital Signs
Temp Pulse Resp BP Pulse Ox
97.7 F 80 15 131/93 95
04/27/23 04:26 04/27/23 05:00 04/27/23 05:00 04/27/23 05:00 04/27/23 05:00
I&O
04/26/23 04/27/23 04/28/23
06:59 06:59 06:59
Intake Total 2547.4 / 2652.9 2315.7 / 2315.7
Output Total 2049 1250 / 1250
Balance 497.4 / 577.9 1065.7 / 1065.7
Review of Systems
-
Unable to obtain full review of systems at this time due to: Other (Acute delirium)
History Source: Patient
Constitutional: Reports Sleep Disturbance
Respiratory: Reports No Symptoms
Cardiac: Reports No Symptoms
Abdomen/GI: Reports Diarrhea
Physical Exam
-
General: Well Developed
HEENT: Normocephalic and PERRLA
Respiratory: Clear to Auscultation
Cardiac: Regular Rhythm
GI: Soft and Nontender
Neuro: Sedated
Psych: Confused, Agitated and Intact Judgement/Insight (Hallucinates when agitated)
Data Reviewed
-
Total Time Spent with Patient (in minutes): 56
Labs: Labs Reviewed by me (Potassium 3.3 bicarb 18/LFTs trending down)
[2023-04-27] MEDS: PHENOBARBITAL 65 MG IV ×3 (07:21→21:26)
[2023-04-27] MEDS: THIAMINE INJECTION 200 MG IV ×2 (07:21→19:43)
[2023-04-27] MEDS: FOLVITE 50.2000000000000028 MG IV (07:30)
[2023-04-27] MEDS: LR 1000 IV ×2 (07:31→15:15)
[2023-04-27] MEDS: ATIVAN 2 MG IV ×4 (07:36→23:02)
--- NOTE | 2023-04-27 07:55 | PTCARENOTE ---
Patient increasing agitated during morning rounds, staff at bedside to attempt to redirect offer po intake, explain all procedures protocols. Spitting water back at staff when taken in, verbally abusive at times, pulling and bitting medical
equipment. Multiple attempts at redirection of behaviors, maintain patient in safe environment, attempt to orient to surroundings and events. Patient actually stating 'I'm going to go drink.' Continue supportive cares, attempts at teaching, nursing
presently at bedside. Continue assessment and vital sign trends. Monitor bp trends. Hospitalist at bedside in am. Oncology Social Work team at bedside.
--- NOTE | 2023-04-27 10:09 | PTCARENOTE ---
Patient again agitated. BP and heart rate elevated difficult to take accurate measurement secondary to agitation. Bed and patient completely saturated. Complete bed bath, continue to offer nutrition/po intake, redirect and reorient. Patient again
able to say 'I had a seizure and bit my tongue' Review events, review day, date, time and continue to explain all procedures and protocols. MSAS protocols. Continue frequent rounds, safety checks, spd protocols, and skin care protocols.
--- NOTE | 2023-04-27 13:05 | PTCARENOTE ---
Updated that mom was at bedside. Mother states that patient has been under alot of stress from work, recent eye infection, recent bought of hemorrhoids, and trying to cut back on drinking. She also stated that the whole family drinks and it will be
difficult to recover from this. Patient friend at bedside and patient starting saying this is what i get for cutting back drinking. Patient continues to wax wane from agitated, restless to talkative about events. Will follow MSAS protocol and safety
checks ongoing.
--- NOTE | 2023-04-27 14:24 | CM ---
CM following re: discharge planning.
Discussed in rounds, reviewed pt's chart, met with pt and pt's mother at bedside. Per Rounds meeting, pt is more agitated today, weaning Precedex, continue supportive care.
[facility] referral made and [facility] will meet with the pt when clinically appropriate.
D/C plan: Inpatient D&A rehab if pt agrees. [facility] following.
CM will follow with discharge plan updates as hospitalization progresses
--- NOTE | 2023-04-27 14:35 | W.PN.UPDATE ---
Update Note
Progress Note Update
chart reviewed. discussed with nursing. i was unable to rouse patient to speak with him. he remains on precedex as well as phenobarbital and msas protocol. he has received several doses of ativan today. (two 2 mg doses and one 1 mg dose). would
continue w medications as they are. will try to talk with him tomorrow.
[2023-04-27] MEDS: ATIVAN 1 MG IV ×2 (15:24→17:52)
--- NOTE | 2023-04-27 17:28 | PTCARENOTE ---
Patient wi9fe/girlfriend and father at bedside. Updated plan of cares, events of dayshift and plan of nightshift cares. Update positive progress in ICU as of this assessment. Reinforce importance of recovery, sleep, and told family to work with
social service to help find recovery programs. Continue with supportive cares, teaching and emotional support. Patient still disoriented at times, he believes that he is at [facility] [employer] and should not stay there long. Continue reorientation and
redirection of behaviors. Continue po intake when tolerated and safe.
[2023-04-27] MEDS: LOVENOX 40 MG SC (17:53)
[2023-04-27] MEDS: NSS (PRESERVATIVE FREE) 8 ML IV (19:42)
[2023-04-27] MEDS: PEPCID 20 MG IV (19:42)
--- NOTE | 2023-04-27 23:13 | PTCARENOTE ---
pt assessed as documented. awake at times screaming and yelling. garbled speech, difficult to understand. pulling at restraints, attempting to hit staff. precedex increased and ativan given per MSAS.
[2023-04-28] VITALS (21 sets, daily range): BP systolic 94–170; BP diastolic 74–113; BMI 24.4
[2023-04-28] MEDS: PRECEDEX 100 IV ×5 (00:43→22:29)
[2023-04-28] MEDS: ATIVAN 2 MG IV ×5 (02:05→23:52)
[2023-04-28 04:45] LABS: % Basophils 0.6 % (0-2); % Eosinophils 1.3 % (0-6); % Immature Granulocytes 0.6 % (0-0.5); % Lymphocytes 14.2 % (20.5-51.1); % Monocytes 10.1 % (1.7-9.3); % Neutrophils 73.2 % (42.2-75.2); Absolute Eosinophils 0.1 10^3/uL (0-0.7); Absolute Monocytes 0.7 10^3/uL (0.1-0.6); Absolute Neutrophils 5.2 10^3/uL (1.4-6.5); Hematocrit 36.2 % (39.0-52.0); Hemoglobin 13.5 g/dL (13.0-18.0); Mean Corp Hgb Conc. 37.3 g/dL (33.0-37.0); Mean Corpuscular Hgb 36.1 pg (27.0-31.0); Mean Corpuscular Volume 96.8 fL (80.0-94.0); Mean Platelet Volume 10.6 fL (7.4-10.4); Nucleated Red Blood Cells % 0.4 % (-); Platelet Count 106 10^3/uL (130-400); Red Blood Cell Count 3.74 10^6/uL (4.70-6.10); Red Cell Dist. Width 11.8 % (11.5-14.5)
--- NOTE | 2023-04-28 05:03 | PTCARENOTE ---
pt agitated during bath, prn ativan given.
[2023-04-28 05:11] LABS: ALT (SGPT) 89 U/L (0-50); AST (SGOT) 68 U/L (17-59); Albumin 3.8 g/dl (3.5-5.0); Alkaline Phosphatase 93 U/L (38-126); Blood Urea Nitrogen 6 mg/dl (9-20); Calcium 8.5 mg/dl (8.4-10.2); Carbon Dioxide 21 mmol/L (22-30); Chloride 102 mmol/L (98-107); Estimated Creatinine Clearance > 125 ml/min; Glucose 97 mg/dl (70-99); Potassium 3.4 mmol/L (3.5-5.1); Sodium 137 mmol/L (135-145); Total Bilirubin 1.2 mg/dl (0.2-1.3); Total Protein 6.5 g/dl (6.3-8.2); eGFR > 60.00
[2023-04-28] MEDS: KCL 270 MEQ IV (05:46)
--- NOTE | 2023-04-28 06:38 | W.PN.HOSP.TC ---
Addendum entered and electronically signed by Rob Esposito MD 04/28/23 16:14:
Hypokalemia
Original Note:
Today's Communication/Plan
-
Really still needs to have titration of Precedex due to continued agitation and belligerent
Continue on phenobarb taper
Continue on IV fluids
Hypertension aggravated by periods of agitation
Add clonidine TTS
Assessment / Plan
Assessment / Plan
Patient 47 years old male with history of alcohol presented to the hospital with seizure in the setting of alcohol use.� He admits to heavy drinking.� He has been experiencing shakiness, nausea, increased anxiety as the day has progressed.� He did
have tonic-clonic activity witnessed associated with tongue biting.� He was noted to have metabolic acidosis, hyponatremia, mild hyperglycemia, and elevated LFTs.� He denies chest pain or shortness of breath.� Denies abdominal pain.� He was referred
to hospitalist for further evaluation.
Physical exam:
General: Acutely ill
HEENT: Normocephalic, Atraumatic and Moist Mucous Membranes
Respiratory: Clear to Auscultation; Negative Wheezes, Rales or Rhonchi
Cardiac: Regular Rhythm and S1/S2
GI: Soft, Nontender and Nondistended, no hepatosplenomegaly
Musculoskeletal: No Clubbing, No Cyanosis and No Edema/tremors bilateral hands/no focal deficits
Neuro: Awake, Alert and Oriented/no hallucination
Psych: Calm
Admit to IMU>> !CU for Precedex
#Alcohol withdrawal seizure/ DTs developed with hallucinations/still with significant agitation and belligerence when stimulated
-Metabolic acidosis on presentation now resolved
-Will continue on IV fluids changed to lactated Ringer's
-Seizure precautions
-MSAs screen protocol
-IV thiamine, IV folate
-phenobarb taper/changed to IV with agitation
-PT/OT/case management consult for alcohol rehab
� ��CT head:�No acute intracranial abnormality
�� EKG: Sinus tach 121 bpm, QTc 457 MS no previous EKGs available
#Hypertension-New
-Was advised 1 week ago history of but not placed any medication
IV hydralazine now and 5 mg as needed SBP greater than 160
-As needed metoprolol for tachycardia and high BP
- For now placed on maintenance beta-blockade
�will monitor need for daily meds
#Acute transaminitis 2/2 alcohol abuse
Follow CMP/AST trending down
-Ultrasound liver>> fatty liver
#Acute thrombocytopenia possibly secondary to cirrhosis given alcohol abuse
PLT 94,000>> 106,000
-Check ultrasound liver consistent with fatty liver
#Tongue lacerations from seizure-mild
-Magic mouthwash for comfort
DVT prophylaxis
SCDs
Full code
Anticipated Discharge: 24 - 48 hours
Subjective/Interval History
-
Date of Service: April 28, 2023
Continues with agitation belligerence and need for restraints and had to increase Precedex again overnight happens with any stimulation otherwise snoring respirations when not stimulated.
Objective Data
-
Labs:
Laboratory Results
04/28/23 04/28/23
04:29 06:23
WBC 7.0
Hgb 13.5
Hct 36.2 L
Plt Count 106 L
PT Pending
INR Pending
APTT Pending
Sodium 137
Potassium 3.4 L
Chloride 102
Carbon Dioxide 21 L
BUN 6 L
Creatinine 0.5 L
Glucose 97
Calcium 8.5
Total Bilirubin 1.2
AST 68 H
ALT 89 H
Alkaline Phosphatase 93
Vital Signs:
Vital Signs
Temp Pulse Resp BP Pulse Ox
97.3 F 89 18 161/106 97
04/28/23 03:30 04/28/23 06:06 04/28/23 06:06 04/28/23 06:06 04/28/23 06:06
I&O
04/26/23 04/27/23 04/28/23
06:59 06:59 06:59
Intake Total 2547.4 / 2652.9 2315.7 / 2477.6 2961.6 / 2961.6
Output Total 2049 1250 / 1250 4550 / 4550
Balance 497.4 / 577.9 1065.7 / 1227.6 -1588.4 / -1588.4
Review of Systems
-
Unable to obtain full review of systems at this time due to: Other (Delirium)
History Source: Patient
Constitutional: Reports Sleep Disturbance
Respiratory: Reports No Symptoms
Cardiac: Reports No Symptoms
Abdomen/GI: Reports No Symptoms
Physical Exam
-
General: Other (Sedated)
HEENT: Normocephalic
Respiratory: Clear to Auscultation
Cardiac: Regular Rhythm
Musculoskeletal: Other (4 point restraint)
Skin: IV Access / Catheter Site
Neuro: Awake
Psych: Agitated and Anxious; Negative Intact Judgement/Insight
Data Reviewed
-
Total Time Spent with Patient (in minutes): 56
Labs: Labs Reviewed by me (Potassium 3.4 bicarb 21/LFTs still trending down)
--- NOTE | 2023-04-28 07:37 | W.PN.INTV ---
Today's Communication / Plan
Recommendations
Wean Precedex
Phenobarb continues
Aspiration precautions
Ativan as needed
Assessment
-
47-year-old male alcoholic who presented to the hospital with seizure and felt to have alcohol withdrawal seizures and transferred because of agitation and 4 point restraints to ICU on Precedex and phenobarbital-economic geographer consulted for
DTs/seizures/critical care management 04/26/2023.
Assessment
Alcohol use disorder with DTs and seizure
New onset seizures
Tongue laceration from seizure
Mild hyperglycemia
Transaminitis and total bilirubin elevation
Metabolic acidosis
Hypertension
Thrombocytopenia
Conditions present prior to admission:
Alcohol use disorder
Asthma
Former smoker
Appendectomy
Family history of alcoholism
Plan
Patient remains critically ill on Precedex
Supplemental oxygen as needed
Aspiration precautions
Incentive spirometry if able
Head of bed elevation per protocol
Follow MSAS
Alcohol withdrawal treatment protocol will continue
Ativan as needed
Precedex drip continues-attempt to wean off
Continue with phenobarbital
4 point restraints as needed-will attempt to liberate once agitation improves
Alcohol cessation counseling when oriented
Consider eventual psychiatry evaluation
Consider rehabilitation
Trend LFTs-improving
Abdominal ultrasound 04/25/2023-increased echogenicity of the liver compatible with hepatocellular disease most commonly related to fatty infiltration of the liver
Monitor thrombocytopenia
Monitor hypertension
Antihypertensives as needed
DVT prophylaxis-on Lovenox
GI prophylaxis-on Pepcid
Nutrition with aspiration precautions
Eventual mobilization once agitation and risk for self-harm decrease
Critical care statement: A total of 36 minutes of critical care time was provided for this patient today. This includes management of unstable vital signs, treatment for and prevention of alcohol withdrawal, evaluation of the patient at bedside,
reviewing the patient's pertinent medical records including radiographs, treatment of alcohol withdrawal seizures, Precedex drip management, phenobarbital management, microbiology, laboratory evaluations, and discussion with primary team,
consultants, pharmacy, nutrition, physical therapy, case management, charge nurse, critical care nursing, and respiratory therapy.
Diagnostic data:
Chest x-ray 04/25/2023-NAD
Subjective Dataa
Subjective Data
Date of Service:
Date of Service: April 28, 2023
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
Subjective:
Still agitated, Precedex weaned, review of systems unobtainable, delusional
Review of Systems
General: Other ( per HPI)
Objective Data
Data Reviewed
Vital Signs / I&O / Oxygen:
Vital Signs
Temp Pulse Resp BP Pulse Ox
97.3 F 89 18 161/106 97
04/28/23 03:30 04/28/23 06:06 04/28/23 06:06 04/28/23 06:06 04/28/23 06:06
Intake and Output
04/27/23 04/28/23 04/29/23
06:59 06:59 06:59
Intake Total 2315.7 / 2477.6 2961.6 / 2961.6
Output Total 1250 / 1250 4550 / 4550
Balance 1065.7 / 1227.6 -1588.4 / -1588.4
SaO2 97
Physical Exam
General: Respiratory Distress (n) and Comfortable
HEENT: Normocephalic, Anicteric and Moist Mucous Membranes
Cardiovascular: Regular Rhythm
Respiratory: Wheeze (n), Crackles (n), Rhonchi (n), Non-Labored Respirations, Accessory Resp Muscle Use (n) and Stridor (n)
GI: Soft, Non Distended and Non Tender
Neurology: No Motor Deficits and Lethargic
Skin: Warm, Good Color, Cyanosis (n) and Jaundice (n)
Labs/Micro/Reports
Lab Data
04/28/23 04:29
04/28/23 04:29
[2023-04-28] MEDS: PEPCID 20 MG IV ×2 (07:57→19:00)
[2023-04-28] MEDS: PHENOBARBITAL 65 MG IV ×3 (07:58→21:18)
[2023-04-28] MEDS: NSS (PRESERVATIVE FREE) 8 ML IV ×2 (07:58→19:00)
[2023-04-28] MEDS: LR 1000 IV ×2 (08:16→18:57)
[2023-04-28] MEDS: FOLVITE 50.2000000000000028 MG IV (08:16)
[2023-04-28] MEDS: ATIVAN 1 MG PO ×2 (08:17→17:34)
[2023-04-28] MEDS: VITAMIN B1 100 MG PO ×2 (08:17→19:00)
--- NOTE | 2023-04-28 08:24 | PTCARENOTE ---
Received pt in bed, 4 point soft limb restraints and mitts. Pt drowsy and restless at times, pulling at restraints. Pt oriented to self only. Unaware he is in the hospital but after reorientation recognized past events, 'I had a seizure from cutting
back on drinking', asking 'when did I get back in the hosptial?' Pt was cooperative w/ med pass, this RN placing pills in applesauce. After assessing pt, pt began to get agitated stating 'I think you guys are messing w/ me' 'I need to get out of
here and get back to work'. Continued attempts to reorient pt were somewhat successful, emotional support provided. Will attempt to order breakfast for pt and re-evaluate cooperation. 1mg PO Ativan given this AM for MSAS of 5. NSR-ST on monitor. BP
elevated, will recheck as pt was fighting restraints. 93-99% on RA, loud snoring observed w/ periods of sleep apnea. #[address], yellow urine. Precedex continues @ 1mcg/kg/hr, 18ml/hr. LR @ 80ml/hr via L 18g PIV. Will continue to
monitor closely.
[2023-04-28] MEDS: CATAPRES-TTS-1 0.100000000000000006 MG TRANSDERM (09:48)
--- NOTE | 2023-04-28 11:53 | PN.CDI ---
CDI
- -
CDI:
Physician Documentation Request
Admit Date: 04/24/23 13:47
Dear Doctor Vaibhav,
Patient admitted for alcohol withdrawal.
04/26 Potassium level: 3.3
04/26 Potassium chloride 40 meq IV administered
04/27 Potassium level: 3.4
04/27 Potassium chloride 40 meq IV administered
Based on the above, could you clarify in the progress notes, the appropriate diagnosis, if significant, that supports the above abnormalities and additional evaluation, monitoring and/or treatment rendered:
Hypokalemia
Abnormal lab value insignificant
Other
Use of terms such as suspected, likely, concern for, or probable (associated with a specific diagnosis that is being evaluated, monitored, or treated as if it exists) are acceptable and can be coded in the inpatient setting, when documented at the
time of discharge.
Thank you,
Shanita Thomas RN, BSN
CDI Specialist
Available via [employer] text
Please use your independent medical judgment in providing your response.
--- NOTE | 2023-04-28 12:07 | W.PN.UPDATE ---
Update Note
Progress Note Update
reviewed chart discussed w nursing and with pharmacy. patient requiring large amounts ativan during the night as per msas. phenobarb held at current dose for one more day. i was unable to rouse patient sufficiently enough to talk w him. will try
again tomorrow
[2023-04-28] MEDS: ATIVAN 1 MG IV (13:21)
--- NOTE | 2023-04-28 13:37 | PTCARENOTE ---
Pt w/ increased hallucinations and restlessness. 1mg IV Ativan given for MSAS of 9. Will monitor. 4 point restraints continue.
--- NOTE | 2023-04-28 14:03 | CM ---
CM following re: discharge planning.
Discussed in rounds, reviewed pt's chart, met with pt and pt's mother at bedside. Per Rounds meeting, pt is Pt w/ increased hallucinations and restlessness, 4 point restraints continue, required large amount of Ativan at night due to agitation,
continue supportive care.
[facility] referral made and [facility] will meet with the pt when clinically appropriate.
Psychiatry evaluation noted.
D/C plan: Inpatient D&A rehab if pt agrees. [facility] following.
CM will follow with discharge plan updates as hospitalization progresses
[2023-04-28] MEDS: LOPRESSOR 5 MG IV (16:05)
[2023-04-28] MEDS: LOVENOX 40 MG SC (17:12)
--- NOTE | 2023-04-28 17:30 | PTCARENOTE ---
Pt more alert, oriented to self and place. Cooperative w/ care and taking oral intake. Restraints removed. Friends at bedside, offering support. Pt very weak able to feed self w/ some assistance. Precedex previously weaned to 0.8 mcg/kg/hr. Will
monitor closely.
[2023-04-28] MEDS: REFRESH EYE DROPS (PF) 1 DROPS OPHTH (18:03)
--- NOTE | 2023-04-28 20:24 | PTCARENOTE ---
pt woke up attempting to climb up over top of the side rails. had legs up on the bedside table. had removed all his monitors. attempted to reorient but pt not making any sense. unable to follow commands just keeps pulling at his monitors. prn ativan
given and precedex increased.
[2023-04-29] VITALS (29 sets, daily range): BP systolic 95–173; BP diastolic 69–114; PULSE 102–120; O2SAT 97; BMI 24.7
--- NOTE | 2023-04-29 04:57 | PTCARENOTE ---
pt awake much more cooperative this morning. attempted to get pt to follow commands the only thing he would do is smile. when asking him where he was he just mumbles, unable to understand what he says. will not nod head to yes/no questions. remains
on precedex gtt.
[2023-04-29 05:21] LABS: Blood Urea Nitrogen 7 mg/dl (9-20); Calcium 8.8 mg/dl (8.4-10.2); Carbon Dioxide 24 mmol/L (22-30); Chloride 101 mmol/L (98-107); Estimated Creatinine Clearance > 125 ml/min; Glucose 126 mg/dl (70-99); Potassium 3.7 mmol/L (3.5-5.1); Sodium 135 mmol/L (135-145); eGFR > 60.00
[2023-04-29] MEDS: ATIVAN 2 MG IV (06:16)
--- NOTE | 2023-04-29 06:20 | PTCARENOTE ---
pt awake pulling at restraints, trying to sit up. when asked where he is he says [place]. pt states there is a cat sitting on his lap and he hates cats. unable to reorient. continues to try and sit and and crawl out of bed. pulling at condom
catheter. PRN ativan given.
--- NOTE | 2023-04-29 06:49 | W.PN.HOSP.TC ---
Today's Communication/Plan
-
Remains with requirement to intermittent Ativan and continued alcohol withdrawal protocol
Phenobarb taper continues
Continues to require some titration of Precedex although less
Chemistries reviewed
Encourage oral intake
Assessment / Plan
Assessment / Plan
Patient 47 years old male with history of alcohol presented to the hospital with seizure in the setting of alcohol use.� He admits to heavy drinking.� He has been experiencing shakiness, nausea, increased anxiety as the day has progressed.� He did
have tonic-clonic activity witnessed associated with tongue biting.� He was noted to have metabolic acidosis, hyponatremia, mild hyperglycemia, and elevated LFTs.� He denies chest pain or shortness of breath.� Denies abdominal pain.� He was referred
to hospitalist for further evaluation.
Physical exam:
General: Acutely ill
HEENT: Normocephalic, Atraumatic and Moist Mucous Membranes
Respiratory: Clear to Auscultation; Negative Wheezes, Rales or Rhonchi
Cardiac: Regular Rhythm and S1/S2
GI: Soft, Nontender and Nondistended, no hepatosplenomegaly
Musculoskeletal: No Clubbing, No Cyanosis and No Edema/tremors bilateral hands/no focal deficits
Neuro: Awake, Alert and Oriented/no hallucination
Psych: Calm
Admit to IMU>> ICU for Precedex
#Alcohol withdrawal seizure/ DTs developed with hallucinations/still with significant agitation and belligerence when stimulated
-Metabolic acidosis on presentation now resolved
-Will continue on IV fluids changed to lactated Ringer's
-Seizure precautions
-MSAs screen protocol
-IV thiamine, IV folate
-phenobarb taper/changed to IV with agitation
-PT/OT/case management consult for alcohol rehab
� ��CT head:�No acute intracranial abnormality
�� EKG: Sinus tach 121 bpm, QTc 457 MS no previous EKGs available
#Hypertension-New
-Was advised 1 week ago history of but not placed any medication
IV hydralazine now and 5 mg as needed SBP greater than 160
-As needed metoprolol for tachycardia and high BP
- For now placed on maintenance beta-blockade labetalol 100 mg twice daily added
�will monitor need for daily meds
#Acute transaminitis 2/2 alcohol abuse
Follow CMP/AST trending down
-Ultrasound liver>> fatty liver
#Acute thrombocytopenia possibly secondary to cirrhosis given alcohol abuse
PLT 94,000>> 106,000
-Check ultrasound liver consistent with fatty liver
#Tongue lacerations from seizure-mild
-Magic mouthwash for comfort
DVT prophylaxis
SCDs
Full code
Anticipated Discharge: 24 - 48 hours
Subjective/Interval History
-
Date of Service: April 29, 2023
Remains agitated and belligerent still hallucinating according to nurse overnight thinks he is on another [place] and saw a cat on his lap and he hates cats had to be placed back on 4 point restraints after attempted taking off leg restraints earlier
minimal oral intake
Objective Data
-
Labs:
Laboratory Results
04/29/23
04:36
Sodium 135
Potassium 3.7
Chloride 101
Carbon Dioxide 24
BUN 7 L
Creatinine 0.5 L
Glucose 126 H
Calcium 8.8
Vital Signs:
Vital Signs
Temp Pulse Resp BP Pulse Ox
98.6 F 89 13 146/108 95
04/29/23 03:10 04/29/23 06:00 04/29/23 06:00 04/29/23 06:00 04/29/23 06:00
I&O
04/27/23 04/28/23 04/29/23
06:59 06:59 06:59
Intake Total 2315.7 / 2477.6 2961.6 / 2979.6 2897.6 / 2897.6
Output Total 1250 / 1250 4550 / 4550 1400 / 1400
Balance 1065.7 / 1227.6 -1588.4 / -1570.4 1497.6 / 1497.6
Review of Systems
-
Unable to obtain full review of systems at this time due to: Other (Acute delirium)
History Source: Patient
Constitutional: Reports Not Done
Respiratory: Reports No Symptoms
Cardiac: Reports No Symptoms
Physical Exam
-
General: Well Developed
HEENT: Normocephalic
Respiratory: Clear to Auscultation
Cardiac: Regular Rhythm
GI: Soft
Neuro: Sedated
Psych: Negative Intact Judgement/Insight (Lacks insight and judgment/actively hallucinating when awake)
[2023-04-29] MEDS: LR 1000 IV ×2 (07:20→18:10)
[2023-04-29] MEDS: REFRESH EYE DROPS (PF) 1 DROPS OPHTH (07:28)
[2023-04-29] MEDS: LUMINAL 32.3999999999999986 MG PO ×3 (07:29→21:08)
[2023-04-29] MEDS: VITAMIN B1 100 MG PO ×2 (07:29→20:13)
[2023-04-29] MEDS: NSS (PRESERVATIVE FREE) 8 ML IV ×2 (07:29→20:14)
[2023-04-29] MEDS: PEPCID 20 MG IV ×2 (07:30→20:14)
--- NOTE | 2023-04-29 07:42 | W.PN.INTV ---
Today's Communication / Plan
Recommendations
Ativan
Wean Precedex
Phenobarbital protocol
Assessment
-
47-year-old male alcoholic who presented to the hospital with seizure and felt to have alcohol withdrawal seizures and transferred because of agitation and 4 point restraints to ICU on Precedex and phenobarbital-substance abuse services director consulted for
DTs/seizures/critical care management 04/26/2023.
Assessment
Alcohol use disorder with DTs and seizure
New onset seizures
Tongue laceration from seizure
Mild hyperglycemia
Transaminitis and total bilirubin elevation
Metabolic acidosis
Hypertension
Thrombocytopenia
Conditions present prior to admission:
Alcohol use disorder
Asthma
Former smoker
Appendectomy
Family history of alcoholism
Plan
Continues to be critically ill on Precedex-0.8
Continue supplemental oxygen if needed
Aspiration precautions continues
Incentive spirometry if able
Head of bed elevation per protocol
Continue to follow MSAS
Alcohol withdrawal treatment protocol will continue
Ativan as needed-required 6 mg overnight
Precedex drip continues-attempt to wean off
Continue with phenobarbital
4 point restraints as needed-will attempt to liberate once agitation improves
Alcohol cessation counseling when oriented-reviewed with father at the bedside 04/29/2023-he believes his son can quit for his '4-year-old'
Consider eventual psychiatry evaluation
Consider rehabilitation
Trend LFTs-improving
Abdominal ultrasound 04/25/2023-increased echogenicity of the liver compatible with hepatocellular disease most commonly related to fatty infiltration of the liver
Follow thrombocytopenia
Monitor hypertension
Antihypertensives as needed
DVT prophylaxis-on Lovenox
GI prophylaxis-on Pepcid
Nutrition with aspiration precautions
Eventual mobilization once agitation and risk for self-harm decrease
Critical care statement: A total of 34 minutes of critical care time was provided for this patient today. This includes management of unstable vital signs, treatment for and prevention of alcohol withdrawal, evaluation of the patient at bedside,
reviewing the patient's pertinent medical records including radiographs, treatment of alcohol withdrawal seizures, Precedex drip management, phenobarbital management, microbiology, laboratory evaluations, and discussion with primary team,
consultants, pharmacy, nutrition, physical therapy, case management, charge nurse, critical care nursing, and respiratory therapy.
Diagnostic data:
Chest x-ray 04/25/2023-NAD
Subjective Dataa
Subjective Data
Date of Service:
Date of Service: April 29, 2023
Chief Complaint: Rn Advice Follow Up and Pulmonary Follow Up
Subjective:
More alert, still delusional, still requiring restraints, no shortness of breath, chest pain or abdominal pain
Review of Systems
General: Other ( Per HPI)
Objective Data
Data Reviewed
Vital Signs / I&O / Oxygen:
Vital Signs
Temp Pulse Resp BP Pulse Ox
97.7 F 77 21 163/103 96
04/29/23 07:39 04/29/23 07:00 04/29/23 07:00 04/29/23 07:00 04/29/23 07:00
Intake and Output
04/28/23 04/29/23 04/30/23
06:59 06:59 06:59
Intake Total 2961.6 / 2979.6 2897.6 / 2897.6
Output Total 4550 / 4550 1400 / 1400
Balance -1588.4 / -1570.4 1497.6 / 1497.6
SaO2 96
Physical Exam
General: Respiratory Distress (n) and Comfortable
HEENT: Normocephalic, Anicteric and Moist Mucous Membranes
Cardiovascular: Regular Rhythm
Respiratory: Wheeze (n), Crackles (n), Rhonchi (n), Non-Labored Respirations, Accessory Resp Muscle Use (n) and Stridor (n)
GI: Soft, Non Distended and Non Tender
Neurology: No Motor Deficits and Lethargic
Skin: Warm, Good Color, Cyanosis (n) and Jaundice (n)
Labs/Micro/Reports
Lab Data
04/28/23 04:29
04/29/23 04:36
Laboratory Results
04/28/23
06:23
PT Cancelled
INR Cancelled
APTT Cancelled
[2023-04-29] MEDS: TRANDATE PO (09:58)
[2023-04-29] MEDS: FOLVITE 50.2000000000000028 MG IV (09:58)
[2023-04-29] MEDS: PRECEDEX 100 IV (10:04)
[2023-04-29] MEDS: NON-FORMULARY ITEM 1 UNIT NASAL (12:06)
--- NOTE | 2023-04-29 12:50 | W.PN.UPDATE ---
Update Note
Progress Note Update
patient seen chart reviewed. mother at bedside. spoke with nursing. the patient is still somewhat confused (told me he was in [place] but was otherwise oriented). mother and nsg also report he is hallucinating from time to time. he continues to
need ativan and remains on phenobarb while precedex is being tapered. that said he is much much better than yesterday. he was able to converse pretty coherently. .he does say he wants sobriety and recognizes the impact on his life. he is however
still saying he cannot go to rehab given the realities of his job. mother is encouraging aa and he says he will go and get a sponsor. explained to patient the physiology of withdrawal and the deleterious effects of etoh on the body. also tried to
impress upon him that merely wishing for sobriety will not make it so. it takes work and an understanding of the reality that he will be triggered and needs a plan to deal with temptation. as he gets better will discuss with him whether gabapentin
or possibly an antidepressant could help as he does describe some anxiety . revia might be another possibility. for now continue w taper of phenobarb and precedex and ativan as per msas
[2023-04-29] MEDS: ATIVAN 1 MG PO ×2 (14:07→22:39)
--- NOTE | 2023-04-29 14:28 | PTCARENOTE ---
Pt confused, but cooperative. Thinks he is in rehab, unable to give correct birthdate, keeps giving current year despite multiple clues. Otherwise no changes. REports feeling anxious, and palpitations. HR is increased to 130s as precedex is
weaned. Oral ativan given as charted. Continue to wean precedex as charted.
--- NOTE | 2023-04-29 16:30 | PTCARENOTE ---
Pt reports feeling better after ativan. Precedex has now been weaned off. Still with some confusion, but has remained pleasant and cooperative t/o shift. Pt has been voiding without difficulty since this am. Visitors in t/o day. Pt
reports being anxious at times. Has been intermittently tearful t/o day. Otherwise no changes.
[2023-04-29] MEDS: LOVENOX 40 MG SC (18:06)
[2023-04-29] MEDS: FIRST-MOUTHWASH BLM SUSPENSION 5 ML PO ×2 (18:06→22:45)
--- NOTE | 2023-04-29 20:00 | PTCARENOTE ---
Received pt. at 1900. Pt. currently in bed. Patient not aggressive, but very impulsive. Multiple attempts to get out of bed. Bed alarm is on. Restraints in place per order. Pt. hallucinating, claiming there is a robot in his bed. Continuing MSAS
assessment and PRN Ativan. Precedex gtt has remained off. Heart rhythm sinus. Pt. hypertensive. Scheduled and PRN meds given to lower blood pressure, see MAR. Currently on room air. Lungs sound diminished. Patient ordered a regular diet. Condom cath
in place, voiding without issue. Skin as documented. Discussed plan of care with patient. Vital signs stable at this time.
[2023-04-29] MEDS: TRANDATE 100 MG PO (20:13)
[2023-04-29] MEDS: ATIVAN 1 MG IV ×2 (20:15→21:09)
[2023-04-29] MEDS: LOPRESSOR 5 MG IV (22:39)
--- NOTE | 2023-04-29 23:58 | PTCARENOTE ---
Pt. MSAS score as high as 9. Continue to perform MSAS assessment and give PRN Ativan, see MAR. SBP as high as 170s, PRN IV Metoprolol given. Pt. remains impulsive, but is able to be redirected.
[2023-04-30] VITALS (13 sets, daily range): BP systolic 123–163; BP diastolic 79–117; BMI 24.0
[2023-04-30] MEDS: ATIVAN 1 MG IV ×3 (00:20→03:56)
[2023-04-30 04:13] LABS: % Basophils 0.7 % (0-2); % Eosinophils 0.7 % (0-6); % Immature Granulocytes 0.5 % (0-0.5); % Lymphocytes 22.9 % (20.5-51.1); % Monocytes 14.8 % (1.7-9.3); % Neutrophils 60.4 % (42.2-75.2); Absolute Lymphocytes 1.4 10^3/uL (1.2-3.4); Absolute Monocytes 0.9 10^3/uL (0.1-0.6); Absolute Neutrophils 3.7 10^3/uL (1.4-6.5); Hematocrit 40.4 % (39.0-52.0); Hemoglobin 14.5 g/dL (13.0-18.0); Mean Corp Hgb Conc. 35.9 g/dL (33.0-37.0); Mean Corpuscular Hgb 34.9 pg (27.0-31.0); Mean Corpuscular Volume 97.1 fL (80.0-94.0); Nucleated Red Blood Cells % 0 % (-); Platelet Count 192 10^3/uL (130-400); Red Blood Cell Count 4.16 10^6/uL (4.70-6.10); Red Cell Dist. Width 11.5 % (11.5-14.5); White Blood Cell Count 6.2 10^3/uL (4.8-10.8)
--- NOTE | 2023-04-30 04:15 | PTCARENOTE ---
Pt. assessment remains unchanged. Continues with withdrawal symptoms. Following MSAS protocol. AM labs drawn. Vital signs stable at this time.
[2023-04-30 04:38] LABS: ALT (SGPT) 63 U/L (0-50); AST (SGOT) 55 U/L (17-59); Albumin 3.9 g/dl (3.5-5.0); Alkaline Phosphatase 90 U/L (38-126); Blood Urea Nitrogen 5 mg/dl (9-20); Carbon Dioxide 21 mmol/L (22-30); Chloride 105 mmol/L (98-107); Estimated Creatinine Clearance > 125 ml/min; Glucose 126 mg/dl (70-99); Potassium 3.6 mmol/L (3.5-5.1); Sodium 135 mmol/L (135-145); Total Bilirubin 0.9 mg/dl (0.2-1.3); Total Protein 6.7 g/dl (6.3-8.2); eGFR > 60.00
[2023-04-30] MEDS: ATIVAN 1 MG PO ×3 (04:57→20:35)
--- NOTE | 2023-04-30 06:51 | W.PN.HOSP.TC ---
Today's Communication/Plan
-
Improved but remains impulsive and still hallucinating
MS AAS score still elevated still receiving some qualities of Ativan especially at night
Need to control BP and heart rate will await washout of clonidine patch
Will add amlodipine
Change IV fluids to normal saline
Assessment / Plan
Assessment / Plan
Patient 47 years old male with history of alcohol presented to the hospital with seizure in the setting of alcohol use.� He admits to heavy drinking.� He has been experiencing shakiness, nausea, increased anxiety as the day has progressed.� He did
have tonic-clonic activity witnessed associated with tongue biting.� He was noted to have metabolic acidosis, hyponatremia, mild hyperglycemia, and elevated LFTs.� He denies chest pain or shortness of breath.� Denies abdominal pain.� He was referred
to hospitalist for further evaluation.
Physical exam:
General: Acutely ill
HEENT: Normocephalic, Atraumatic and Moist Mucous Membranes
Respiratory: Clear to Auscultation; Negative Wheezes, Rales or Rhonchi
Cardiac: Regular Rhythm and S1/S2
GI: Soft, Nontender and Nondistended, no hepatosplenomegaly
Musculoskeletal: No Clubbing, No Cyanosis and No Edema/tremors bilateral hands/no focal deficits
Neuro: Awake, Alert and Oriented/no hallucination
Psych: Calm
Admit to IMU>> ICU for Precedex/now discontinued on April 28
#Alcohol withdrawal seizure/ DTs developed with hallucinations/still with significant agitation and belligerence when stimulated
-Metabolic acidosis on presentation now resolved
-Will continue on IV fluids changed to lactated Ringer's
-Seizure precautions
-MSAs screen protocol
-IV thiamine, IV folate
-phenobarb taper/
-PT/OT/case management consult for alcohol rehab
� ��CT head:�No acute intracranial abnormality
�� EKG: Sinus tach 121 bpm, QTc 457 MS no previous EKGs available
#Hypertension-New
-Was advised 1 week ago history of but not placed any medication
IV hydralazine now and 5 mg as needed SBP greater than 160
-As needed metoprolol for tachycardia and high BP
- For now placed on maintenance beta-blockade labetalol 100 mg twice daily added
�will monitor need for daily meds/awaiting washout of clonidine patch
#Acute transaminitis 2/2 alcohol abuse
Follow CMP/AST trending down
-Ultrasound liver>> fatty liver
#Acute thrombocytopenia possibly secondary to cirrhosis given alcohol abuse
PLT 94,000>> 106,000
-Check ultrasound liver consistent with fatty liver
#Tongue lacerations from seizure-mild
-Magic mouthwash for comfort
DVT prophylaxis
SCDs
Full code
Anticipated Discharge: 24 - 48 hours
Subjective/Interval History
-
Date of Service: April 30, 2023
Patient is now off Precedex and has been awake most of the night his emesis scores remain elevated at 8-9 but he is a lot more interactive remains impulsive trying to get out of bed and continues to have some hallucinations remains tachycardic with
high BP
Objective Data
-
Labs:
Laboratory Results
04/30/23
04:04
WBC 6.2
Hgb 14.5
Hct 40.4
Plt Count 192 D
Sodium 135
Potassium 3.6
Chloride 105
Carbon Dioxide 21 L
BUN 5 L
Creatinine 0.6 L
Glucose 126 H
Calcium 9.0
Total Bilirubin 0.9
AST 55
ALT 63 H
Alkaline Phosphatase 90
Vital Signs:
Vital Signs
Temp Pulse Resp BP Pulse Ox
99.7 F 110 18 153/93 97
04/30/23 04:00 04/30/23 06:00 04/30/23 06:00 04/30/23 06:00 04/30/23 04:00
I&O
04/28/23 04/29/23 04/30/23
06:59 06:59 06:59
Intake Total 2961.6 / 2979.6 2897.6 / 2995.6 3870.0 / 3870.0
Output Total 4550 / 4550 1400 / 1400 3725 / 3725
Balance -1588.4 / -1570.4 1497.6 / 1595.6 145.0 / 145.0
Review of Systems
-
History Source: Patient
Constitutional: Reports Other (Impulsive)
Psych: Reports Anxious
Physical Exam
-
General: Well Developed
HEENT: Normocephalic
Respiratory: Clear to Auscultation
Cardiac: Regular Rhythm and Tachycardic
GI: Soft
Genito-urinary: Other (Condom catheter with some incontinence when)
Neuro: Awake and Oriented (Needs frequent redirection and orientation still hallucinating)
Psych: Agitated and Anxious; Negative Intact Judgement/Insight
Data Reviewed
-
Total Time Spent with Patient (in minutes): 56
Labs: Labs Reviewed by me (Bicarb 21/sodium 135 potassium 3.6/LFTs now normalized)
--- NOTE | 2023-04-30 07:05 | W.PN.INTV ---
Today's Communication / Plan
Recommendations
Precedex weaned
Ativan as needed
Antihypertensives
Phenobarbital per
Assessment
-
47-year-old male alcoholic who presented to the hospital with seizure and felt to have alcohol withdrawal seizures and transferred because of agitation and 4 point restraints to ICU on Precedex and phenobarbital-marine architect consulted for
DTs/seizures/critical care management 04/26/2023.
Assessment
Alcohol use disorder with DTs and seizure
New onset seizures
Tongue laceration from seizure
Mild hyperglycemia
Transaminitis and total bilirubin elevation
Metabolic acidosis
Hypertension
Thrombocytopenia
Conditions present prior to admission:
Alcohol use disorder
Asthma
Former smoker
Appendectomy
Family history of alcoholism
Plan
Mental status slowly improving and now off Precedex
Wean supplemental oxygen to room air
Aspiration precautions continues
Incentive spirometry encouraged
Head of bed elevation per protocol
Follow MSAS
Alcohol withdrawal treatment protocol continues
Ativan as needed-required 8 mg overnight
Precedex drip discontinued
Continue with phenobarbital
2 point restraints as needed-will attempt to liberate once agitation/impulsiveness improves
Alcohol cessation counseling when oriented-Dr. Yoon reviewed with father at the bedside 04/29/2023-he believes his son can quit for his '4-year-old'
Consider eventual psychiatry evaluation
Consider rehabilitation
Trend LFTs-improving
Abdominal ultrasound 04/25/2023-increased echogenicity of the liver compatible with hepatocellular disease most commonly related to fatty infiltration of the liver
Monitor thrombocytopenia
Follow hypertension
Antihypertensives as needed-Per hospitalist
DVT prophylaxis-on Lovenox
GI prophylaxis-on Pepcid
Nutrition with aspiration precautions
Eventual mobilization once agitation and risk for self-harm decrease
If able to be weaned off Precedex then likely could be transferred out of ICU-call pulmonary if respiratory issues arise
Reviewed the patient's pertinent medical records including radiographs, treatment of alcohol withdrawal seizures, Precedex drip management, phenobarbital management, microbiology, laboratory evaluations, and discussion with primary team,
consultants, pharmacy, nutrition, physical therapy, case management, charge nurse, critical care nursing, and respiratory therapy.
Diagnostic data:
Chest x-ray 04/25/2023-NAD
Subjective Dataa
Subjective Data
Date of Service:
Date of Service: April 30, 2023
Chief Complaint: Dynamo Tender Follow Up and Pulmonary Follow Up
Subjective:
More alert, still disoriented, occasionally agitated, no complaints of shortness of breath, chest pain, productive cough or abdominal pain
Review of Systems
General: Other (Per HPI)
Objective Data
Data Reviewed
Vital Signs / I&O / Oxygen:
Vital Signs
Temp Pulse Resp BP Pulse Ox
99.7 F 110 18 153/93 97
04/30/23 04:00 04/30/23 06:00 04/30/23 06:00 04/30/23 06:00 04/30/23 04:00
Intake and Output
04/29/23 04/30/23 05/01/23
06:59 06:59 06:59
Intake Total 2897.6 / 2995.6 3870.0 / 3870.0
Output Total 1400 / 1400 3725 / 3725
Balance 1497.6 / 1595.6 145.0 / 145.0
SaO2 97
Physical Exam
General: Respiratory Distress (n) and Comfortable
HEENT: Normocephalic, Anicteric and Moist Mucous Membranes
Cardiovascular: Regular Rhythm
Respiratory: Wheeze (n), Crackles (n), Rhonchi (n), Non-Labored Respirations, Accessory Resp Muscle Use (n) and Stridor (n)
GI: Soft, Non Distended and Non Tender
Neurology: Awake, Alert and No Motor Deficits
Skin: Warm, Good Color, Cyanosis (n) and Jaundice (n)
Labs/Micro/Reports
Lab Data
04/30/23 04:04
04/30/23 04:04
[2023-04-30] MEDS: FIRST-MOUTHWASH BLM SUSPENSION 5 ML PO ×2 (07:24→20:35)
[2023-04-30] MEDS: FOLVITE 50.2000000000000028 MG IV (08:41)
[2023-04-30] MEDS: NSS 1000 IV ×2 (08:41→20:39)
[2023-04-30] MEDS: LUMINAL 32.3999999999999986 MG PO (08:42)
[2023-04-30] MEDS: NSS (PRESERVATIVE FREE) 8 ML IV ×2 (08:42→20:34)
[2023-04-30] MEDS: NORVASC 5 MG PO (08:42)
[2023-04-30] MEDS: NON-FORMULARY ITEM 1 UNIT NASAL ×2 (08:42→21:00)
[2023-04-30] MEDS: VITAMIN B1 100 MG PO ×2 (08:43→20:34)
[2023-04-30] MEDS: TRANDATE 100 MG PO ×2 (08:43→20:34)
[2023-04-30] MEDS: PEPCID 20 MG IV ×2 (08:43→20:34)
--- NOTE | 2023-04-30 10:36 | PTCARENOTE ---
Received pt this am restless and impulsive. Confused to place, but easily reorients. Pt having hallucinations while in room, but knows he is hallucinating. Remains pleasant and cooperative. With assist of 2, pt was assisted oob to chair.
Unsteady on feet, chair alarm in place. Restraints have been removed. Father was in to see pt and said conversation is still somewhat confused. 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 Otherwise no changes.
[2023-04-30] MEDS: LUMINAL 64.7999999999999972 MG PO ×2 (15:40→22:06)
[2023-04-30] MEDS: LUMINAL PO (17:19)
--- NOTE | 2023-04-30 17:41 | PTCARENOTE ---
Psychiatrist updated to events of day, persistent hallucinations, impulsivity, lack of sleep and increased need for ativan at night. Increased dose of phenobarb ordered. Pt had dozed off when staff went in to take vss and give meds. Pt woke up
confused, agitated and trying to climb oob. Was not redirectable. Additional ativan given as well as phenobarb. Pt did calm after doses, but still slightly impulsive. Friend/significant other in room and updated. Psychiatrist in room to see pt
and orders pending. Bed alarm in place.
[2023-04-30] MEDS: LOVENOX 40 MG SC (18:42)
--- NOTE | 2023-04-30 18:57 | W.PN.UPDATE ---
Update Note
Progress Note Update
Pt seen & evaluated at bedside - as per nursing, has been intermittently agitated. Although generally is oriented, has had times of what seems like delirium with agitation. For majority of the interview pt does appear to be oriented and provide
meaningful answers, however at times he is noted to become confused and need to be reoriented.
Plans to stop using EtOH on return to home - not open to rehab or outpt tx however, says he plans to get sober together with his partner by going to AA.
slow phenobarbital taper, 64.8mg [id number], then resume 32.4mg [id number] then stop
risperidone 0.5mg TIDPRN acute agitation
--- NOTE | 2023-04-30 20:30 | PTCARENOTE ---
Received pt. at 1900. Pt. currently in bed. Impulsive. Multiple attempts to get out of bed unassisted. Continue to do MSAS assessments. PRN Ativan given, see MAR. Denies pain or discomfort. Heart rhythm sinus tachy. Currently on room air. Lungs
sound diminished. Regular diet ordered. Condom catheter in place, voiding without issue. Skin as documented. Discussed plan of care. Vital signs stable at this time.
[2023-04-30] MEDS: RISPERDAL M-TAB (ORALLY DISINTEGRATING) 0.5 MG PO (20:34)
[2023-05-01] VITALS (7 sets, daily range): BP systolic 117–156; BP diastolic 76–115; BMI 23.4; BMI 23.3
[2023-05-01 05:01] LABS: Hematocrit 38.8 % (39.0-52.0); Hemoglobin 13.9 g/dL (13.0-18.0); Mean Corp Hgb Conc. 35.8 g/dL (33.0-37.0); Mean Corpuscular Hgb 34.4 pg (27.0-31.0); Mean Platelet Volume 9.7 fL (7.4-10.4); Platelet Count 178 10^3/uL (130-400); Red Blood Cell Count 4.04 10^6/uL (4.70-6.10); Red Cell Dist. Width 11.5 % (11.5-14.5); White Blood Cell Count 4.9 10^3/uL (4.8-10.8)
[2023-05-01 05:28] LABS: Blood Urea Nitrogen 7 mg/dl (9-20); Calcium 9.2 mg/dl (8.4-10.2); Carbon Dioxide 23 mmol/L (22-30); Chloride 104 mmol/L (98-107); Estimated Creatinine Clearance > 125 ml/min; Glucose 106 mg/dl (70-99); Potassium 3.7 mmol/L (3.5-5.1); Sodium 137 mmol/L (135-145); eGFR > 60.00
--- NOTE | 2023-05-01 05:45 | PTCARENOTE ---
Pt. transferred to 3W. Report called prior to transfer. Patient awake and alert. Pt. belongings taken to new room.
--- NOTE | 2023-05-01 08:14 | W.PN.HOSP.TC ---
Today's Communication/Plan
-
Still hallucinatin
Finished phenobarb taper
D/C IV fluids
Assess PT/OT and ambulation
Now refusing alcohol rehab/keep trying to encourage to pursue
Adjusting BP and heart rate meds
Assessment / Plan
Assessment / Plan
Patient 47 years old male with history of alcohol presented to the hospital with seizure in the setting of alcohol use.� He admits to heavy drinking.� He has been experiencing shakiness, nausea, increased anxiety as the day has progressed.� He did
have tonic-clonic activity witnessed associated with tongue biting.� He was noted to have metabolic acidosis, hyponatremia, mild hyperglycemia, and elevated LFTs.� He denies chest pain or shortness of breath.� Denies abdominal pain.� He was referred
to hospitalist for further evaluation.
Physical exam:
General: Acutely ill
HEENT: Normocephalic, Atraumatic and Moist Mucous Membranes
Respiratory: Clear to Auscultation; Negative Wheezes, Rales or Rhonchi
Cardiac: Regular Rhythm and S1/S2
GI: Soft, Nontender and Nondistended, no hepatosplenomegaly
Musculoskeletal: No Clubbing, No Cyanosis and No Edema/tremors bilateral hands/no focal deficits
Neuro: Awake, Alert and Oriented/no hallucination
Psych: Calm
Admit to IMU>> ICU for Precedex/now discontinued on April 28
#Alcohol withdrawal seizure/ DTs developed with hallucinations/still with visual hallucinations/impulsive
-Metabolic acidosis on presentation now resolved
-Will continue on IV fluids changed to lactated Ringer's
-Seizure precautions
-MSAs screen protocol
-IV thiamine, IV folate
-phenobarb taper/to finish by tomorrow May 01
-PT/OT/case management consult for alcohol rehab
� ��CT head:�No acute intracranial abnormality
�� EKG: Sinus tach 121 bpm, QTc 457 MS no previous EKGs available
#Hypertension-New
-Was advised 1 week ago history of but not placed any medication
IV hydralazine now and 5 mg as needed SBP greater than 160
-As needed metoprolol for tachycardia and high BP
- For now placed on maintenance beta-blockade labetalol 100 mg twice daily added
�will monitor need for daily meds/awaiting washout of clonidine patch
#Acute transaminitis 2/2 alcohol abuse
Follow CMP/AST trending down
-Ultrasound liver>> fatty liver
#Acute thrombocytopenia possibly secondary to cirrhosis given alcohol abuse
PLT 94,000>> 106,000
-Check ultrasound liver consistent with fatty liver
#Tongue lacerations from seizure-mild
-Magic mouthwash for comfort
DVT prophylaxis
SCDs
Full code
Anticipated Discharge: Within 24 hours
Subjective/Interval History
-
Date of Service: May 01, 2023
Remains quite impulsive constantly trying to get out of bed acknowledges now that he does not want to go to acute alcohol rehab I am too busy for that' I can do this on my own.' He continues to have hallucinations where stuff on the devries is coming
out at him and threatened by.
Objective Data
-
Labs:
Laboratory Results
05/01/23
04:48
WBC 4.9
Hgb 13.9
Hct 38.8 L
Plt Count 178
Sodium 137
Potassium 3.7
Chloride 104
Carbon Dioxide 23
BUN 7 L
Creatinine 0.6 L
Glucose 106 H
Calcium 9.2
Vital Signs:
Vital Signs
Temp Pulse Resp BP Pulse Ox
98.7 F 108 16 129/84 97
05/01/23 07:00 05/01/23 07:00 05/01/23 07:00 05/01/23 07:00 05/01/23 07:00
I&O
04/30/23 05/01/2324
06:59 06:59 06:59
Intake Total 3870.0 / 3950.0 3040 / 3040
Output Total 3725 / 3725 2750 / 2750
Balance 145.0 / 225.0 290 / 290
Review of Systems
-
History Source: Patient
All other systems: Reviewed and negative
EENT: Reports No Symptoms Reported
Respiratory: Reports No Symptoms
Cardiac: Reports No Symptoms
Abdomen/GI: Reports No Symptoms
Neuro: Reports Other (Still with visual hallucinations)
Psych: Reports Anxious
Physical Exam
-
General: Well Developed
HEENT: Normocephalic
Cardiac: Regular Rhythm
GI: Soft
Musculoskeletal: No Clubbing
Neuro: Awake and AO x 3
Psych: Anxious
Data Reviewed
-
Total Time Spent with Patient (in minutes): 56
Labs: Labs Reviewed by me (Chemistries and CBC now stable LFTs normalized)
[2023-05-01] MEDS: FOLVITE 50.2000000000000028 MG IV (08:27)
[2023-05-01] MEDS: VITAMIN B1 100 MG PO ×2 (08:27→19:59)
[2023-05-01] MEDS: NORVASC 5 MG PO (08:28)
[2023-05-01] MEDS: TRANDATE 100 MG PO ×2 (08:28→19:59)
[2023-05-01] MEDS: LUMINAL 64.7999999999999972 MG PO ×2 (08:29→17:46)
[2023-05-01] MEDS: NON-FORMULARY ITEM 1 UNIT NASAL ×2 (08:29→19:58)
[2023-05-01] MEDS: NSS (PRESERVATIVE FREE) 8 ML IV ×2 (08:30→19:59)
[2023-05-01] MEDS: PEPCID 20 MG IV ×2 (08:32→19:59)
[2023-05-01] MEDS: NSS IV (10:39)
--- NOTE | 2023-05-01 14:16 | PTCARENOTE ---
Pt with PRN IV metoprolol ordered. As per protocol, pt placed on telemetry protocol
[2023-05-01] MEDS: LOVENOX SC (17:46)
--- NOTE | 2023-05-01 19:26 | W.PN.UPDATE ---
Update Note
Progress Note Update
Pt seen & evaluated at bedside, partner present. Reports feeling much better - was seeing 'things crawling around' previously but says this has resolved now. Not feeling anxious, not tremulous. Expresses wanting to leave, however was agreeable to
remain until end of taper once it was explained what the risks are (partner also encouraged him to remain).
No changes - continue with taper until complete
Not open to rehab at this time
[2023-05-01] MEDS: LUMINAL 32.3999999999999986 MG PO (21:23)
[2023-05-02] VITALS (8 sets, daily range): BP systolic 102–152; BP diastolic 78–97; PULSE 111–112; O2SAT 97
[2023-05-02] MEDS: FOLVITE 50.2000000000000028 MG IV (08:23)
[2023-05-02] MEDS: NORVASC 5 MG PO (08:23)
[2023-05-02] MEDS: VITAMIN B1 100 MG PO ×2 (08:24→20:57)
[2023-05-02] MEDS: PEPCID 20 MG IV (08:24)
[2023-05-02] MEDS: LUMINAL 32.3999999999999986 MG PO ×3 (08:24→21:01)
[2023-05-02] MEDS: TRANDATE 100 MG PO ×2 (08:24→20:56)
[2023-05-02] MEDS: FLUSH (NSS) 4 FLUSH IV (08:25)
[2023-05-02] MEDS: NSS (PRESERVATIVE FREE) 8 ML IV (08:25)
[2023-05-02] MEDS: NON-FORMULARY ITEM 1 UNIT NASAL ×2 (08:26→20:58)
--- NOTE | 2023-05-02 10:52 | PTOTSP ---
Patient receptive and motivated to participate in session. Demonstrates good insight into safety with transfers, ambulation and elevations. Does not demonstrate further need for skilled therapy and will be discharged. If needs change, please
re-consult.
--- NOTE | 2023-05-02 11:04 | PTOTSP ---
Pt currently at mod I level with basic self care, transfers and mobility in room and bathroom without AD. Pt is oriented x 3; general cognition grossly intact but not formally assessed. No further skilled OT indicated at this time.
--- NOTE | 2023-05-02 13:43 | W.PN.HOSP.TC ---
Today's Communication/Plan
-
dc in 24 hours when phenobarbital protocol completes
Assessment / Plan
Assessment / Plan
Assessment:
Alcohol withdrawal seizure/ DTs developed with hallucinations/still with visual hallucinations/impulsive
- Metabolic acidosis on presentation now resolved
- Seizure precautions
- MSAs screen protocol
- IV thiamine, IV folate
- continue phenobarb protocol through 05/02
- patient opts for AA instead of IP rehab. CM following
Essential HTN
- continue Labetalol BID
Acute transaminitis 2/2 alcohol abuse
- improved
- US: fatty liver
Acute thrombocytopenia possibly secondary to cirrhosis given alcohol abuse
- resolved
Tongue lacerations from seizure-mild
- Magic mouthwash for comfort
DVT prophylaxis: SCDs
Code: Full
Anticipated Discharge: Within 24 hours
Subjective/Interval History
-
Date of Service: May 02, 2023
no complaints
Objective Data
-
Vital Signs:
Vital Signs
Temp Pulse Resp BP Pulse Ox
98.3 F 111 17 130/91 97
05/02/23 11:11 05/02/23 11:11 05/02/23 11:11 05/02/23 11:11 05/02/23 11:11
I&O
05/01/23 05/02/23 05/03/23
06:59 06:59 06:59
Intake Total 3040 / 3040 720 / 720 960 / 960
Output Total 2750 / 2750 3100 / 3100
Balance 290 / 290 -2380 / -2380 960 / 960
Physical Exam
-
General: Well Developed and Well Nourished
HEENT: Normocephalic and Atraumatic
Respiratory: Negative Wheezes or Rales
Cardiac: Regular Rhythm and S1/S2
GI: Soft and Nontender
Genito-urinary: No Costovertebral Tender
Musculoskeletal: No Edema
Neuro: AO x 3
Hematologic / Lymphatic: No Lymphadenopathy
Psych: Calm
Data Reviewed
-
Total Time Spent with Patient (in minutes): 40
Labs: Labs Reviewed by me
[2023-05-02] MEDS: FIRST-MOUTHWASH BLM SUSPENSION 5 ML PO (14:08)
--- NOTE | 2023-05-02 14:09 | W.PN.UPDATE ---
Update Note
Progress Note Update
Approached pt for follow-up. Pt alert, calm, cooperative, with no signs of agitation or psychosis. He declined the need to psychiatric care, stating he is going to return home and attend AA. Phenobarb taper scheduled to be completed tomorrow.
Imp: Alcohol Use d/o, severe
� Alcohol withdrawal delirium, seizure- resolved
Rec: Psychiatry will sign off; please re-consult for any new or immediate concerns
--- NOTE | 2023-05-02 14:28 | CM ---
Per notes, patient less agitated, feeling better. Wants to return home and go to AA meetings.
Plan: Case management will continue to follow and assist with discharge planning. Patient will return home and f/u with AA.
[2023-05-02] MEDS: LOVENOX 40 MG SC (17:13)
[2023-05-02] MEDS: PEPCID 20 MG PO (20:58)
[2023-05-03 03:00] VITALS: BP 107/72
[2023-05-03 07:00] VITALS: BP 125/86
[2023-05-03] MEDS: TRANDATE 100 MG PO (08:10)
[2023-05-03] MEDS: NORVASC 5 MG PO (08:10)
[2023-05-03] MEDS: PEPCID 20 MG PO (08:10)
[2023-05-03] MEDS: VITAMIN B1 100 MG PO (08:10)
[2023-05-03] MEDS: NON-FORMULARY ITEM 1 UNIT NASAL (08:11)
[2023-05-03] MEDS: LUMINAL 32.3999999999999986 MG PO ×2 (08:56→15:03)
[2023-05-03] MEDS: FOLVITE 50.2000000000000028 MG IV (08:56)
[2023-05-03] MEDS: FIRST-MOUTHWASH BLM SUSPENSION 5 ML PO (09:03)
[2023-05-03 11:00] VITALS: BP 106/72
--- NOTE | 2023-05-03 12:33 | W.PN.HOSP.TC ---
Today's Communication/Plan
-
dc to home
Assessment / Plan
Assessment / Plan
Assessment:
Alcohol withdrawal seizure/ DTs developed with hallucinations/still with visual hallucinations/impulsive
- Metabolic acidosis on presentation now resolved
- Seizure precautions
- MSAs screen protocol - scores improved
- IV thiamine, IV folate
- continue phenobarb protocol through today
- patient opts for AA instead of IP rehab. CM following
Essential HTN
- continue Labetalol BID
Acute transaminitis 2/2 alcohol abuse
- improved
- US: fatty liver
Acute thrombocytopenia possibly secondary to cirrhosis given alcohol abuse
- resolved
Tongue lacerations from seizure-mild
- Magic mouthwash for comfort
Clinical depression - start Zoloft 25mg - PCP f/u
DVT prophylaxis: SCDs
Code: Full
More than 30 minutes spent in discharge including
Final examination of the patient
Summarizing hospital stay
Instructions for continuing care to all relevant caregivers
Preparation of discharge records, prescriptions, and referral forms
Total time spent (in minutes):42
Anticipated Discharge: Today
Subjective/Interval History
-
Date of Service: May 03, 2023
no complaints
Objective Data
-
Vital Signs:
Vital Signs
Temp Pulse Resp BP Pulse Ox
97.9 F 99 18 106/72 99
05/03/23 11:00 05/03/23 11:00 05/03/23 11:00 05/03/23 11:00 05/03/23 11:00
I&O
05/02/23 05/03/23 05/04/23
06:59 06:59 06:59
Intake Total 720 / 720 2820 / 2820
Output Total 3100 / 3100
Balance -2380 / -2380 2820 / 2820
Physical Exam
-
General: No Apparent Distress
HEENT: Normocephalic and Atraumatic
Respiratory: Clear to Auscultation; Negative Wheezes or Rales
Cardiac: Regular Rhythm and S1/S2
GI: Soft
Genito-urinary: No Costovertebral Tender
Neuro: AO x 3
Hematologic / Lymphatic: No Lymphadenopathy
Psych: Calm
Data Reviewed
-
Total Time Spent with Patient (in minutes): 42
Labs: Labs Reviewed by me
--- NOTE | 2023-05-03 12:45 | W.DS.TRANS ---
DC Summary - [facility] [employer]ist
-
Discharge Instructions:
Discharge Diagnosis/Procedures Alcohol withdrawal with seizures
Diet Regular
Activity As tolerated
Bathing Restrictions None
Instructions:
Stand-Alone Forms:
Changes to Home Medications: No
Discharge Medications:
DC Medications w/original date entered in [employer]
albuterol sulfate 90 mcg/actuation aerosol inhaler 2 puff inhalation R Q4HPRN PRN sob/wheezing 04/24/23
varenicline 0.03 mg/spray nasal spray (Tyrvaya) 1 spray intranasal BID Eye Condition 04/24/23
folic acid 1 mg tablet 1 mg PO DAILY #100 tabs 05/03/23
labetalol 100 mg tablet 100 mg PO BID #60 tabs 05/03/23
sertraline 25 mg tablet (Zoloft) 25 mg PO DAILY #30 tabs 05/03/23
thiamine HCl (vitamin B1) 100 mg tablet 100 mg PO BID #100 tabs 05/03/23
Home Medication Changes
Pending Results: No
Total time spent discharging patient (in min): 42
[2023-05-03 15:00] VITALS: BP 110/78
== END 2023-05-03 16:58 | disposition home or self-care (01) | DRG 897 ==
LOC: 3 WEST ACU 13:47
PROVIDERS: Clinical Nurse Specialist Family Health; Internal Medicine; Physician Assistant Medical; ADMITTING PHYSICIAN Hospitalist; ATTENDING PHYSICIAN Internal Medicine; EMERGENCY PHYSICIAN Emergency Medicine; FAMILY PHYSICIAN Family Medicine; OTHER PHYSICIAN Internal Medicine Critical Care Medicine; OTHER PHYSICIAN Psychiatry & Neurology Psychiatry
DX: F10.231 Alcohol dependence with withdrawal delirium (principal); E87.20 Acidosis, unspecified; E87.1 Hypo-osmolality and hyponatremia; R56.9 Unspecified convulsions; J45.909 Unspecified asthma, uncomplicated; F17.200 Nicotine dependence, unspecified, uncomplicated; F10.229 Alcohol dependence with intoxication, unspecified; F41.9 Anxiety disorder, unspecified; R73.9 Hyperglycemia, unspecified; E87.6 Hypokalemia; K76.0 Fatty (change of) liver, not elsewhere classified; R45.1 Restlessness and agitation; F32.A Depression, unspecified; I10 Essential (primary) hypertension; R44.1 Visual hallucinations; D69.59 Other secondary thrombocytopenia; S01.512A Laceration without foreign body of oral cavity, initial encounter; X58.XXXA Exposure to other specified factors, initial encounter; Y93.9 Activity, unspecified; Y92.9 Unspecified place or not applicable; Z81.1 Family history of alcohol abuse and dependence; Z83.3 Family history of diabetes mellitus; Z63.72 Alcoholism and drug addiction in family
CPT/HCPCS: 70450; 71045; 76700; 80048; 80053; 80061; 80143; 82077; 83735; 84100; 85025; 85027; 85610; 85730; 93005; 96361; 96374; 96376; 97110; 97116; 97162; 97166; 97530; 97535; 99285

== ENCOUNTER 2024-10-10 13:16 | Emergency (ER) | payer OTHER, SELFPAY ==
[2024-10-10] VITALS (10 sets, daily range): BP systolic 109–170; BP diastolic 76–117; BMI 30.4
[2024-10-10 13:58] LABS: Hematocrit 44.6 % (39.0-52.0); Hemoglobin 16.3 g/dL (13.0-18.0); Mean Corp Hgb Conc. 36.5 g/dL (33.0-37.0); Mean Corpuscular Volume 95.1 fL (80.0-94.0); Nucleated Red Blood Cells % 0 % (-); Platelet Count 150 10^3/uL (130-400); Red Cell Dist. Width 12.7 % (11.5-14.5)
--- NOTE | 2024-10-10 14:20 | ED.GENMED ---
History of Present Illness
General
Chief Complaint: Alcohol Problem
Source: patient and significant other
Exam Limitations: none
Time Seen by Provider: 10/10/24 13:38
Nursing documentation reviewed up to this point in time: agreed with
History of Present Illness
History of Present Illness:
Patient presents to ED requesting evaluation for alcohol detox, as he has been drinking alcohol, i.e. wine, excessively. Patient's last alcohol intake was this morning. Patient is complaining of feeling anxious and jittery. Patient has had
subsequent weight loss secondary to alcohol consumption recently. Denies fever or chills. Denies chest pain or shortness of breath. Patient does report intermittent vomiting episodes at home. Denies diarrhea. Denies dizziness. Denies weakness.
Denies use of any other illicit medications.
Past History
Past History
ED Past Medical History: Asthma
ED Past Surgical History: Appendectomy
Social History
Tobacco: Smoker
Alcohol: Chronic alcoholic
Drug: None
Personal: Single
Living: with family
Employment: Employed
Review of Systems
Review of Systems
Allergies reviewed?: Yes
All Other Systems: ROS reviewed and negative except as documented in HPI and ROS
Constitutional: Reports no symptoms
Respiratory: Reports no symptoms
Cardiac: Reports no symptoms
ABD/GI: Reports nausea and vomiting; Denies abdominal pain or diarrhea
Musculoskeletal: Reports no symptoms
Skin: Reports no symptoms
Neurological: Reports no symptoms; Denies dizzy or headache
Psychiatric: Reports anxiety
Phy Exam
Physical Exam
Physical Exam:
Physical Exam
General: mild distress, not acutely ill. afebrile
Head: nc/at. eomi
Neck: supple. normal range of motion.
Heart: s1/s2 regular rate and rhythm
Lungs: no acute respiratory distress. clear bilaterally
Abdomen: normal bowel sounds. not tender. no distention
Neuro: alert and oriented x 3. no focal neurological deficits
Skin: no rash
Psychiatric: well kept. interactive and cooperative
Extremities: no edema. no calf tenderness.
Scores
Withdrawal Assessment of Alcohol
Withdrawal Assessment Completed?: Not applicable
Course
Orders/Labs/Results
Orders:
Orders
10/10/24 13:20
Electrocardiogram (*1) Urgent
Reason for Study: Other
Other Reason for Exam: detox
10/10/24 13:21
EKG- Treatment ONCE
10/10/24 13:46
Complete Blood Count/With Diff Urgent
Urine Drug Abuse Screen Urgent
Date Specimen was Collected: 10/10/24
Time Specimen was Collected: 13:20
10/10/24 14:15
diazePAM [Valium Injection] 2 mg IV NOW STA
10/10/24 14:16
Lorazepam [Ativan] 1 mg PO NOW STA
10/10/24 14:19
0.9% Sodium Chloride 1000 ml [Nss] 1,000 ml IV BOLUS
10/10/24 14:28
Alcohol Urgent
Comprehensive Metabolic Panel Urgent
Magnesium Urgent
Abnormal Lab Results
10/10/24 10/10/24
13:46 14:28
RBC 4.69 L 10^6/uL
(4.70-6.10)
MCV 95.1 H fL
(80.0-94.0)
MCH 34.8 H pg
(27.0-31.0)
Chloride 108 H mmol/L
(98-107)
BUN 6 L mg/dl
(9-20)
Glucose 105 H mg/dl
(70-99)
AST 218 H U/L
(17-59)
ALT 151 H U/L
(0-50)
10/10/24 13:46
10/10/24 14:28
Vital Signs
Initial and Last Documented VS:
Initial Vital Signs
Temp Pulse Resp BP Pulse Ox
98.2 F 116 15 170/117 97
10/10/24 13:24 10/10/24 13:24 10/10/24 13:24 10/10/24 13:24 10/10/24 13:24
Last Documented Vital Signs
Temp Pulse Resp BP Pulse Ox
98.2 F 88 15 132/96 98
10/10/24 13:24 10/10/24 21:00 10/10/24 13:24 10/10/24 21:00 10/10/24 21:00
MDM/Problems Addressed
MDM/Problems Addressed:
Pt medically cleared. Patient reports improvement symptoms after treatment. Patient awaiting evaluation by [facility] for potential transition to detox/rehab.
*Pulse Oximetry
SaO2: 94
Oxygen Mode of Delivery: Room air
Patient hypoxic: no
*EKG
Interpreted by ED Provider?: Yes
EKG Intrepretation Date: 10/10/24
Heart Rate: 102
Rate: tachycardiac
Rhythm: sinus
[place]: normal axis
Interval: normal interval
*Critical Care Note
Total Time (30-74mins, 75-104mins- exclusive of procedures): Not Applicable
ED Attending Note
-
Portions of this chart may have been created with voice recognition software.� Occasional wrong word or��sound alike� substitutions may have occurred due to the inherent limitations of voice recognition software.
Discharge Plan
Departure
Patient Disposition: Acute Rehab Facility
Date of Disposition: 10/10/24
Time of Disposition: 15:18
Discharge Problem:
Alcohol dependence
Instructions: Alcohol Use Disorder (DC)
Prescriptions:
No Action
albuterol sulfate 90 mcg/actuation Hfa Aerosol Inhaler
2 puff INHALATION R Q4HPRN PRN (Reason: sob/wheezing)
Tyrvaya 0.03 mg/spray [place], Metered, Non-Aerosol
1 spray INTRANASAL BID
thiamine HCl (vitamin B1) 100 mg Tablet
100 mg PO BID Qty: 100 0RF
folic acid 1 mg tablet
1 mg PO DAILY Qty: 100 0RF
sertraline [Zoloft] 25 mg tablet
25 mg PO DAILY Qty: 30 0RF
labetalol 100 mg tablet
100 mg PO DAILY Qty: 3 0RF
Rx Instructions:
disregard BID Labetolol script
Hospital Transfer
Other hospital: [facility]
I certify that the patient requires transfer: Yes
Discussed case with accepting physician: Tarik
Reason for transfer: availability of service
Interventions
Interventions:
*Risk Screen - Suicide Last Done: 10/10/24 13:24
*General Assessment Last Done: 10/10/24 13:24
*Neglect/Abuse Screening Last Done: 10/10/24 13:24
*ED- Fall Risk Assessment Last Done: 10/10/24 14:07
*ED COVID-19 Vaccine History Last Done: 10/10/24 13:24
*Nursing Disposition Last Done: 10/10/24 20:13
ED- Neurological Assessment Last Done: 10/10/24 13:35
ED-Psychological Assessment Last Done: 10/10/24 13:35
Discharge Date and Time
Discharge Date/Time: 10/10/24 21:30
Print Language: WELSH
[2024-10-10] MEDS: NSS 1000 IV (14:24)
[2024-10-10] MEDS: ATIVAN 1 MG PO (14:25)
[2024-10-10] MEDS: VALIUM INJECTION 2 MG IV (14:25)
[2024-10-10 14:59] LABS: ALT (SGPT) 151 U/L (0-50); AST (SGOT) 218 U/L (17-59); Albumin 4.4 g/dl (3.5-5.0); Alkaline Phosphatase 68 U/L (38-126); Blood Urea Nitrogen 6 mg/dl (9-20); Calcium 9.3 mg/dl (8.4-10.2); Carbon Dioxide 23 mmol/L (22-30); Chloride 108 mmol/L (98-107); Estimated Creatinine Clearance 123 ml/min; Glucose 105 mg/dl (70-99); Magnesium 1.8 mg/dl (1.6-2.3); Potassium 4.1 mmol/L (3.5-5.1); Sodium 141 mmol/L (135-145); Total Protein 6.7 g/dl (6.3-8.2); eGFR > 60.00
== END 2024-10-10 21:30 ==
LOC: EMR 13:16
PROVIDERS: Emergency Medicine; EMERGENCY PHYSICIAN Emergency Medicine; FAMILY PHYSICIAN Family Medicine
DX: F10.20 Alcohol dependence, uncomplicated (principal); J45.909 Unspecified asthma, uncomplicated; F17.200 Nicotine dependence, unspecified, uncomplicated
CPT/HCPCS: 99285; 96374; 96361; 80053; 80306; 82077; 83735; 85025; 93005